=== PATIENT | male | born 1945 | race Caucasian/White ===

== ENCOUNTER 2020-11-03 07:46 | Outpatient (REF) | payer MEDICARE, MEDICAID, SELFPAY ==
[2020-11-03 09:18] LABS: Alanine Aminotransferase 27 U/L (0-40); Albumin Level 4.2 g/dL (3.5-5.0); Alkaline Phosphatase 78 U/L (39-117); Anion Gap 11 (12-20); Aspartate Amino Transferase 20 U/L (5-37); Bilirubin Total 0.3 mg/dL (0.0-1.0); Blood Urea Nitrogen 11 mg/dL (9-16); Calcium 8.6 mg/dL (8.4-10.2); Carbon Dioxide 28 mmol/L (22-29); Chloride 107 mmol/L (96-108); Cholesterol 156 mg/dL; Estimated Glomerular Filt Rate > 60; Glucose Fasting 115 mg/dL (60-99); HDL Cholesterol 46 mg/dL; LDL Cholesterol Calculated 92 mg/dl; Potassium 4.3 mmol/l (3.3-5.1); Sodium 142 mmol/L (135-145); Total Protein 6.8 g/dL (6.5-8.0); Triglycerides 91 mg/dL
== END 2020-11-03 07:47 | disposition home or self-care (01) ==
LOC: HO.LAB 07:46
PROVIDERS: Visit Provider Internal Medicine
DX: I10 Essential (primary) hypertension (principal)
CPT/HCPCS: 80053; 80061

== ENCOUNTER 2020-11-27 07:57 | Outpatient (REF) | payer MEDICARE, MEDICAID, SELFPAY ==
--- NOTE | 2020-11-27 08:04 | US_ITS ---
EXAMINATION: US ABDOMEN LIMITED CLINICAL INFORMATION: Umbilical hernia. COMPARISON: None TECHNIQUE: Doppler color and grayscale evaluation of the periumbilical abdominal wall and right lateral abdominal wall using a linear transducer FINDINGS: There is a defect in the abdominal wall suggestive of an umbilical hernia. Periumbilical abdominal wall defect measures 1.4 x 2.1 cm and contains hypoechoic soft tissue that does not demonstrate peristalsis probably representing fat. Periumbilical hernia sac measures 3 x 2.5 x 1 cm in sagittal transverse and AP dimension. No right lateral abdominal wall hernia is seen. US/US abdomen limited IMPRESSION: Umbilical hernia probably containing fat. Hernia sac measures approximately 3 x 2.5 x 1 cm.
== END 2020-11-27 07:58 | disposition home or self-care (01) ==
LOC: HO.US 07:57
PROVIDERS: Visit Provider Internal Medicine
DX: K42.9 Umbilical hernia without obstruction or gangrene (principal)
CPT/HCPCS: 76705

== ENCOUNTER 2021-03-22 07:44 | Outpatient (REF) | payer MEDICARE, MEDICAID, SELFPAY ==
--- NOTE | ~2021-03-22 | US_ITS ---
EXAMINATION: US ABDOMINAL AORTA CLINICAL INFORMATION: This is a 75-year-old male with history of nicotine dependence. COMPARISON: Comparison is made to a previous study dated 02/02/2020 which did not demonstrate an abdominal aortic aneurysm. TECHNIQUE: Grayscale, color Doppler and spectral Doppler evaluation of the abdominal aorta. FINDINGS: There is minimal scattered atherosclerotic disease without evidence of abdominal aortic aneurysm. The measurements of the aorta in maximum AP and transverse dimensions respectively are as follows: PROXIMAL: 0.2 x 1 point cm. MID: 1.9 x 1 point cm. DISTAL: 1.8 x 1.6 cm. The aorta velocity is 116 cm/s. The measurements of the common iliac arteries in maximum AP dimension are as follows: RIGHT COMMON ILIAC ARTERY: 1.0 x 1 point cm. LEFT COMMON ILIAC ARTERY: 1.2 x 1.1 cm. US/US abdominal aortic aneurysm IMPRESSION: 1. There is no abdominal aortic aneurysm. There is scattered calcified and noncalcified atherosclerotic disease within the aorta.
== END 2021-03-22 07:45 | disposition home or self-care (01) ==
LOC: HO.US 07:44
PROVIDERS: Visit Provider Internal Medicine
DX: Z87.891 Personal history of nicotine dependence (principal)
CPT/HCPCS: 76706

== ENCOUNTER → 2021-05-07 15:20 | Outpatient (BNVA) | payer MEDICARE, MEDICAID, SELFPAY | PROVIDERS: PCP Internal Medicine; Referring Provider Internal Medicine; Visit Provider Surgery | DX: Z01.818 Encounter for other preprocedural examination (principal); K42.9 Umbilical hernia without obstruction or gangrene | CPT/HCPCS: 99202 ==

== ENCOUNTER → 2021-05-22 06:56 | Day surgery (SDC) | payer MEDICARE, MEDICAID, SELFPAY ==
[2021-05-15 12:00] VITALS: BMI 34.0
--- NOTE | 2021-05-21 11:07 | P.CONAN_ITS ---
HPI - Anesthesia Eval Consult details Narrative: 75yo M for Hernia Repair Umbilical with Mesh Pt c/o CP in preop, HR 130's. Sent to ED by anesthesia [facility] Active Problems Active Problems: All Active Problems (Updated 05/15/21 @ 11:57 by Mary Vu) Former smoker (Acute) Periumbilical hernia (Acute) Obesity (Acute) Postherpetic neuralgia (Acute) Essential hypertension (Acute) Past Medical History Medical History (Updated 05/23/21 @ 12:56 by Carisa Jones MD) Essential hypertension Former smoker Obesity Palpitation Periumbilical hernia Postherpetic neuralgia Tachycardia Family History Family History Father Cancer Mother No problems noted. Surgical History Surgical History History of colonoscopy with polypectomy (1999) Social History Social History Alcohol intake: current Alcohol intake frequency: does not drink Alcohol type: beer Patient Tobacco Use Status: Never used Tobacco Tobacco use type: Cigarette Use of substances other than those prescribed or required for medical reasons: No Advance Directives: No Advance Directives Information Provided: No Meds Allergies Allergy/AdvReac Type Severity Reaction Status Date / Time No Known Allergies Allergy Verified 05/07/21 15:26 [No Known Allergies*] Home Medications Medication Instructions Recorded Confirmed Last Taken Type gabapentin 300 mg capsule 300 mg PO BEDTIME 11/07/20 05/15/21 Unknown History Exam Exam Date and Time: May 21, 2021 1107 Height,Weight and Vital Signs: Height 5 ft 6 in Weight 95.6 kg Assessment and Plan Assessment Anesthesia Assessment: Chart Reviewed
[2021-05-22 07:12] VITALS: BP 144/79; PULSE 110; RESP 20; TEMP 36.6; O2SAT 96
--- NOTE | 2021-05-22 07:17 | ECG_ITS ---
Test Reason : PAPITATIONS Blood Pressure : / mmHG Vent. Rate : 132 BPM Atrial Rate : 132 BPM P-R Int : 148 ms QRS Dur : 094 ms QT Int : 304 ms P-R-T Axes : 040 070 003 degrees QTc Int : 450 ms Sinus tachycardia Cannot rule out Inferior infarct , age undetermined Cannot rule out Anterior infarct , age undetermined Abnormal ECG When compared with ECG of 07-APR-2007 23:07, Minimal criteria for Inferior infarct are now Present Referred By: Jesika Chritsian Electronically Signed By:STEPHON BERMUDEZ MD
--- NOTE | 2021-05-22 07:20 | PC.NURSE ---
pt c/o of c/p and sob awaiting ekg dr dove awaiting ekg pwd ls clear speaking in full sentences pulse now 130-144 regular
[2021-05-22 07:26] VITALS: BP 174/83; PULSE 148; RESP 20; TEMP 36.1; O2SAT 96
[2021-05-22] MEDS: Lactated Ringers 1,000 ML 100 ML IVCONT (07:27)
--- NOTE | 2021-05-22 07:28 | PC.NURSE ---
rhythm st 130-148 with pvc
--- NOTE | 2021-05-22 07:29 | PC.NURSE ---
pederson at bedside going over ekg with changes pt will be going to ED DR FERNANDEZ WILL SPEAK TO ED PHYSICIAN
--- NOTE | 2021-05-22 07:35 | PC.NURSE ---
PT DENIES C/P AT THIS TIME CALLED NO SOB PWD REPORT TO ALCIDES LOGAN RN IN ED
== END ==
PROVIDERS: PCP Internal Medicine; Visit Provider Surgery
DX: K42.9 Umbilical hernia without obstruction or gangrene (principal); Z53.8 Procedure and treatment not carried out for other reasons
CPT/HCPCS: 93005

== ENCOUNTER 2021-05-22 07:45 | Emergency (ER) | payer MEDICARE, MEDICAID, SELFPAY ==
--- NOTE | ~2021-05-22 | XR_ITS ---
EXAMINATION: XR CHEST CLINICAL INFORMATION: Fast heart rate COMPARISON: None TECHNIQUE: 2 views of the chest were obtained. FINDINGS: The cardiac and mediastinal contours are normal. The lungs are clear. There is no pleural effusion or pneumothorax. There are degenerative changes of the spine. XR/XR chest 2V IMPRESSION: No evidence for acute disease in the chest.
[2021-05-22 07:48] VITALS: BP 152/69; PULSE 106; RESP 15; TEMP 36.9; O2SAT 96; BMI 33.5
--- NOTE | 2021-05-22 07:51 | PC.NURSE ---
REPORT GIVEN TO NATTY PT PWD DENIES C/P/SOB LATE ENTRY [id number] FAMILY AND PATIENT AWARE OF PLAN OF CARE
[2021-05-22 07:55] VITALS: BP 152/69; PULSE 106; RESP 12; TEMP 36.9; O2SAT 96
--- NOTE | 2021-05-22 07:59 | PC.NURSE ---
Pt alert and oriented, LSCTA. Pt was in short stay for scheduled procedure and started having palpitations that continued over a period of time. Pt states he has been having this issue for months but did not report it to his doctor. He denies chest pain/sob. Pt takes lisinopril at home but did not take it this morning based on instructions to not eat/drink after midnight because of procedure. Pt in no apparent distress, resting quietly. Awaiting ed provider.
--- NOTE | 2021-05-22 08:33 | ECG_ITS ---
Test Reason : PALPITATIONS Blood Pressure : / mmHG Vent. Rate : 105 BPM Atrial Rate : 105 BPM P-R Int : 174 ms QRS Dur : 098 ms QT Int : 360 ms P-R-T Axes : 048 072 006 degrees QTc Int : 475 ms Sinus tachycardia Cannot rule out Inferior infarct (cited on or before 22-MAY-2021) Cannot rule out Anterior infarct (cited on or before 22-MAY-2021) Abnormal ECG When compared with ECG of 22-MAY-2021 07:24, No significant change was found Referred By: Miri Gilbert Electronically Signed By:STEPHON BERMUDEZ MD
--- NOTE | 2021-05-22 08:45 | ED_ITS ---
HPI - Arrhythmia/Palpitations General Chief Complaint: Arrhythmia/Palpitations Stated Complaint: Rapid heartbeat Time Seen by Provider: 05/22/21 08:27 Source: patient and family Mode of arrival: other ( Stretcher) Limitations: no limitations History of Present Illness HPI narrative: 75-year-old male with a past medical history of hypertension, obesity here with complaints of fast heart rate. Patient was in the preoperative area today for an umbilical hernia repair with mesh by Dr. Mariana lancaster. He was noted to have a heart rate of 130-140 on the personnel monitor and was referred to the emergency department for further evaluation. Per preop staff the patient was complaining of some chest discomfort. He tells me that he has no chest discomfort or shortness of breath. He tells me he did have a sensation of palpitations earlier today but this has since improved. He tells me he has been feeling well the last few days. No recent illness. No vomiting, diarrhea, fevers, chills, chest pain, shortness of breath, dizziness. He was feeling anxious he tells me this morning as he was having a surgical procedure. He is now feeling well. He has been fasting since last evening Related Data Home Medications Medication Instructions Recorded Confirmed gabapentin 300 mg capsule 300 mg PO BEDTIME 11/07/20 05/15/21 Previous Rx's Medication Instructions Recorded lisinopril 20 1 tab PO DAILY 90 Days #90 tab 11/07/20 mg-hydrochlorothiazide 25 mg tablet gabapentin 100 mg capsule 100 mg PO TID #270 cap 12/04/20 Allergies Allergy/AdvReac Type Severity Reaction Status Date / Time No Known Allergies Allergy Verified 05/07/21 15:26 [No Known Allergies*] Review of Systems Review of Systems: Yes all other systems are reviewed and are negative Constitutional: Constitutional: Reports no additional constitutional complaints, Denies body ache(s), Denies chills, Denies fever(s), Denies headache(s) and Denies weakness Eyes: Eyes: Reports no additional eye complaints and Denies change in vision ENT: Reports system reviewed and no additional complaints, except as documented, Denies dizziness, Denies headache(s), Denies nasal congestion, Denies nasal discharge and Denies neck pain Cardiovascular: Cardiovascular: Reports no additional cardiovascular complaints, Denies chest pain, Denies leg edema, Reports palpitations and Denies dyspnea Respiratory: Respiratory: Reports no additional respiratory complaints, Denies cough and Denies dyspnea Gastrointestinal: Gastrointestinal: Reports no additional gastrointestinal complaints, Denies abdominal pain, Denies diarrhea, Denies nausea and Denies vomiting Genitourinary: Genitourinary: Denies urinary incontinence Musculoskeletal: Musculoskeletal: Reports no additional musculoskeletal complaints, Denies back pain, Denies arthralgias, Denies joint swelling, Denies neck pain, Denies numbness and Denies tingling Integumentary/Breasts: Skin/Breast: Reports system reviewed and no additional complaints, except as docu and Denies rash Neurologic: Reports system reviewed and no additional complaints, except as documented, Denies Abnormal speech present, Denies dizziness, Denies headache(s), Denies numbness, Denies tingling and Denies weakness Endocrine: Endocrine: Reports palpitations PMFSH Past Medical History Attestation statement: The following information was validated with the patient. Source: old records reviewed and nursing notes reviewed Medical History Essential hypertension Former smoker Obesity Palpitation Periumbilical hernia Postherpetic neuralgia Surgical History History of colonoscopy with polypectomy (1999) Family History Family History Father Cancer Mother No problems noted. Social History Social History Alcohol intake: current Alcohol intake frequency: does not drink Alcohol type: beer Patient Tobacco Use Status: Never used Tobacco Tobacco use type: Cigarette Use of substances other than those prescribed or required for medical reasons: No Advance Directives: No Advance Directives Information Provided: No Physical Exam Vital Signs: Vital Signs: Last Vital Signs Temp 98.4 F 05/22/21 07:55 Pulse 86 05/22/21 11:27 Resp 18 05/22/21 11:27 BP 149/69 H 05/22/21 11:27 Pulse Ox 98 05/22/21 11:27 Body Mass Index 33.5 Const: General: cooperative, healthy appearing, comfortable and no acute distress Orientation/consciousness: patient oriented x3 Limitations: no limitations HENMT: Head: Yes normal to inspection Ears: hearing grossly normal bilaterally General nose exam: Normal external nose present Face and sinus: Yes normal facial exam Mouth: Normal oral and palatal mucosa present Throat: Yes posterior oropharynx normal Eyes: General: appearance normal, both eyes and all related structures Pupils: Equal, round and reactive pupils present Neck: Neck: Yes normal visual inspection Chest: Chest palpation & inspection: normal inspection of the chest Resp: Effort & Inspection: normal respiratory effort Auscultation: clear to auscultation bilaterally Cardio: Rate: tachycardic Rhythm: regular rhythm Peripheral pulses: Peripheral pulses 2+ throughout GI: Inspection: Yes normal to inspection Palpation (GI): Soft to palpation and nontender Auscultation: normal bowel sounds Back/Spine/Pelvis: Thoracic/Lumbar Spine: thoracic and lumbar spine normal to inspection Skin: General skin exam: no rashes or lesions noted Neuro: General: patient oriented x3, no focal motor deficits and normal sensation to monofilament Cranial nerves: Yes Equal, round and reactive pupils present Cognition (Neuro): normal cognition Speech: No Abnormal speech present Gait exam (Neuro): Normal gait present Motor exam (neuro): 5/5 motor strength present throughout Extrem: General: Yes normal to inspection, Yes no pedal edema and Yes no calf tenderness Course Course Course Narrative: 75-year-old male coming from the preoperative area with after being noted to have a heart rate of 130-140 sinus tachycardia on the personnel monitor. It was reported that he was initially complaining of some chest pain b ut he tells me that he did not have any chest pain. He was feeling palpitations and feeling quite anxious in regards to his surgical procedure. As of right now he is feeling well. I reviewed the EKG from preop. It showed sinus tachycardia with a rate of 132. on my assessment the patient has a heart rate of 102 on the personnel monitor. Will plan for repeat EKG, labs, chest x-ray. -0930- Heart rate has now improved to 95. Initial set of labs show an indeterminate troponin. Plan for repeat 3 hour troponin. EKG shows sinus tachycardia. Chest x-ray shows no acute finding -1200 repeat troponin delta. Patient continues to have no complaints. His heart rate is now in the 90s and sinus rhythm. He would like to be discharged home. I did discuss with the patient that he should call his surgeon and asked if he will need additional clearance prior to his surgical procedure. Reviewed worrisome signs and symptoms and when to return to the emergency department. Comfortable discharge home. MDM - Arrhythmia/Palpitations Differential Diagnosis Differential diagnosis: Likely palpitations, anxiety and sinus tachycardia Medical Records Attestation: I reviewed the patient's medical records. Lab Data Attestation: I reviewed the patient's lab results. Result diagrams: 05/22/21 08:42 05/22/21 08:42 Labs: Lab Results 05/22/21 05/22/21 05/22/21 Range/Units 08:42 08:42 08:42 WBC 8.9 (4.8-10.8) X10*3/uL RBC 4.71 (4.60-5.80) X10*6/uL Hgb 15.0 (14.0-18.0) g/dl Hct 42.5 (42-52) % MCV 90.2 (80-98) fL MCH 31.8 (27.0-33.0) pg MCHC 35.3 (31.0-36.0) g/dl RDW 11.7 (11.0-16.0) % Plt Count 272 (160-400) X10*3/uL MPV 8.4 L (9.4-12.4) fL Immature Gran % (Auto) 0.1 (0.0-0.4) % Neut % (Auto) 77.6 H (45-73) % Lymph % (Auto) 14.3 L (20-40) % Whitfield % (Auto) 7.3 (2-11) % Eos % (Auto) 0.4 (0-4) % Baso % (Auto) 0.3 (0-2) % Lymph # (Auto) 1.3 (1.2-4.9) X10*3/uL Whitfield # (Auto) 0.7 (0.1-1.2) X10*3/uL Eos # (Auto) 0.0 (0.0-0.4) X10*3/uL Baso # (Auto) 0.0 (0.0-0.2) X10*3/uL Abs Immat Gran (auto) 0.01 (0.00-0.03) X10*3/uL Absolute Neuts (auto) 6.9 (2.0-8.3) X10*3/uL Absolute Nucleated RBC 0.000 (0.0-0.012) X10*3/uL Nucleated RBC % (auto) 0.0 (0.0-0.2) /100WBC Sodium 139 (135-145) mmol/L Potassium 3.9 (3.3-5.1) mmol/L Chloride 103 (96-108) mmol/L Carbon Dioxide 29 (22-29) mmol/L Anion Gap 11 L (12-20) BUN 16 (9-16) mg/dL Creatinine 1.09 (0.5-1.4) mg/dL Estim Creat Clear Calc 64.8 Estimated GFR > 60 Random Glucose 145 H (60-115) mg/dL Calcium 9.2 D (8.4-10.2) mg/dL Magnesium 1.9 (1.6-2.6) mg/dL Total Bilirubin 0.5 (0.0-1.0) mg/dL Direct Bilirubin 0.3 (0.0-0.5) mg/dL AST 17 (5-37) U/L ALT 21 (0-40) U/L Alkaline Phosphatase 72 (39-117) U/L Troponin I High Sens 4.5 (<3.5-35.0) ng/L Total Protein 6.7 (6.5-8.0) g/dL Albumin 4.2 (3.5-5.0) g/dL TSH 0.87 (0.32-4.0) uIU/mL 05/22/21 Range/Units 11:31 WBC (4.8-10.8) X10*3/uL RBC (4.60-5.80) X10*6/uL Hgb (14.0-18.0) g/dl Hct (42-52) % MCV (80-98) fL MCH (27.0-33.0) pg MCHC (31.0-36.0) g/dl RDW (11.0-16.0) % Plt Count (160-400) X10*3/uL MPV (9.4-12.4) fL Immature Gran % (Auto) (0.0-0.4) % Neut % (Auto) (45-73) % Lymph % (Auto) (20-40) % Whitfield % (Auto) (2-11) % Eos % (Auto) (0-4) % Baso % (Auto) (0-2) % Lymph # (Auto) (1.2-4.9) X10*3/uL Whitfield # (Auto) (0.1-1.2) X10*3/uL Eos # (Auto) (0.0-0.4) X10*3/uL Baso # (Auto) (0.0-0.2) X10*3/uL Abs Immat Gran (auto) (0.00-0.03) X10*3/uL Absolute Neuts (auto) (2.0-8.3) X10*3/uL Absolute Nucleated RBC (0.0-0.012) X10*3/uL Nucleated RBC % (auto) (0.0-0.2) /100WBC Sodium (135-145) mmol/L Potassium (3.3-5.1) mmol/L Chloride (96-108) mmol/L Carbon Dioxide (22-29) mmol/L Anion Gap (12-20) BUN (9-16) mg/dL Creatinine (0.5-1.4) mg/dL Estim Creat Clear Calc Estimated GFR Random Glucose (60-115) mg/dL Calcium (8.4-10.2) mg/dL Magnesium (1.6-2.6) mg/dL Total Bilirubin (0.0-1.0) mg/dL Direct Bilirubin (0.0-0.5) mg/dL AST (5-37) U/L ALT (0-40) U/L Alkaline Phosphatase (39-117) U/L Troponin I High Sens 5.1 (<3.5-35.0) ng/L Total Protein (6.5-8.0) g/dL Albumin (3.5-5.0) g/dL TSH (0.32-4.0) uIU/mL Imaging Data Chest x-ray: Attestation: I personally reviewed and interpreted this imaging study as follows: Radiologist's impression: EXAMINATION: XR CHEST CLINICAL INFORMATION: Fast heart rate COMPARISON: None TECHNIQUE: 2 views of the chest were obtained. FINDINGS: The cardiac and mediastinal contours are normal. The lungs are clear. There is no pleural effusion or pneumothorax. There are degenerative changes of the spine. XR/XR chest 2V IMPRESSION: No evidence for acute disease in the chest. ECG Data Attestation: I personally reviewed and interpreted this ECG as follows: ECG interpretation date: 05/22/21 ECG interpretation time: 08:03 Interpretation: Sinus tachycardia with a rate of 105, prolonged QTC 475, normal DE and QRS q wave in leads 1, 2 and avf Discharge Plan Discharge Clinical Impression: Sinus tachycardia Patient Disposition: Home, Self-Care Instructions: Tachycardia (ED) Additional Instructions: your blood work, chest x-ray and EKG are all unremarkable please call Dr. Claros office tomorrow to discuss if you will need additional clearance prior to surgery Prescriptions: No Action gabapentin 100 mg capsule 100 mg PO TID Qty: 270 RF: 1 gabapentin 300 mg capsule 300 mg PO BEDTIME RF: 0 lisinopril-hydrochlorothiazide 20-25 mg tablet 1 tab PO DAILY 90 Days Qty: 90 RF: 3 Referrals: Carisa Perez MD [Primary Care Provider] - 2 days (as needed) Interventions: ED Discharge Assessment Last Done: 05/22/21 12:42 Discharge Date/Time: 05/22/21 12:43
[2021-05-22 08:47] LABS: MANUAL DIFF FLAG NO
[2021-05-22 08:52] LABS: Basophils Percent Auto 0.3 % (0-2); Eosinophils Percent Auto 0.4 % (0-4); Hematocrit 42.5 % (42-52); Imm Gran Abs Auto 0.01 X10*3/uL (0.00-0.03); Imm Gran Pct Auto 0.1 % (0.0-0.4); Lymphocytes Absolute Auto 1.3 X10*3/uL (1.2-4.9); Lymphocytes Percent Auto 14.3 % (20-40); Mean Corpuscular HGB Conc 35.3 g/dl (31.0-36.0); Mean Corpuscular Hemoglobin 31.8 pg (27.0-33.0); Mean Corpuscular Volume 90.2 fL (80-98); Mean Platelet Volume 8.4 fL (9.4-12.4); Monocytes Absolute Auto 0.7 X10*3/uL (0.1-1.2); Monocytes Percent Auto 7.3 % (2-11); Neutrophils Absolute Auto 6.9 X10*3/uL (2.0-8.3); Neutrophils Percent Auto 77.6 % (45-73); Platelet Count 272 X10*3/uL (160-400); Red Blood Count 4.71 X10*6/uL (4.60-5.80); Red Cell Distribution Width 11.7 % (11.0-16.0); White Blood Count 8.9 X10*3/uL (4.8-10.8)
[2021-05-22] MEDS: 0.9 % Sodium Chloride 1,000 ML 999 ML IV (08:53)
[2021-05-22 08:55] VITALS: BP 152/79; PULSE 99; RESP 16; O2SAT 96
[2021-05-22 09:17] LABS: Alanine Aminotransferase 21 U/L (0-40); Albumin Level 4.2 g/dL (3.5-5.0); Alkaline Phosphatase 72 U/L (39-117); Anion Gap 11 (12-20); Aspartate Amino Transferase 17 U/L (5-37); Bilirubin Direct 0.3 mg/dL (0.0-0.5); Bilirubin Total 0.5 mg/dL (0.0-1.0); Blood Urea Nitrogen 16 mg/dL (9-16); Calcium 9.2 mg/dL (8.4-10.2); Carbon Dioxide 29 mmol/L (22-29); Chloride 103 mmol/L (96-108); Creatinine Clr Calc Pharmacy 64.8; Estimated Glomerular Filt Rate > 60; Glucose Random 145 mg/dL (60-115); Magnesium 1.9 mg/dL (1.6-2.6); Potassium 3.9 mmol/L (3.3-5.1); Sodium 139 mmol/L (135-145); Total Protein 6.7 g/dL (6.5-8.0)
[2021-05-22 09:19] LABS: Troponin-I High Sensitivity 4.5 ng/L (<3.5-35.0)
[2021-05-22 09:37] LABS: Thyroid Stimulating Hormone 0.87 uIU/mL (0.32-4.0)
[2021-05-22 11:27] VITALS: BP 149/69; PULSE 86; RESP 18; O2SAT 98
[2021-05-22 12:06] LABS: Troponin-I High Sensitivity 5.1 ng/L (<3.5-35.0)
== END 2021-05-22 12:43 | disposition home or self-care (01) ==
PROVIDERS: Nurse Practitioner Family; Emergency Provider Emergency Medicine Emergency Medical Services; PCP Internal Medicine
DX: R00.0 Tachycardia, unspecified (principal); I10 Essential (primary) hypertension; E66.9 Obesity, unspecified; Z68.33 Body mass index [BMI] 33.0-33.9, adult; Z79.899 Other long term (current) drug therapy
CPT/HCPCS: 36415; 71046; 80048; 80076; 83735; 84443; 84484; 85025; 93005; 96360; 99285

== ENCOUNTER → 2021-08-01 13:10 | Outpatient (BNVA) | payer MEDICARE, MEDICAID, SELFPAY | PROVIDERS: PCP Internal Medicine; Visit Provider Nurse Practitioner Family | DX: M54.16 Radiculopathy, lumbar region (principal); M47.816 Spondylosis without myelopathy or radiculopathy, lumbar region | CPT/HCPCS: 99202 ==

== ENCOUNTER 2021-08-28 11:19 | Outpatient (REF) | payer MEDICARE, MEDICAID, SELFPAY ==
--- NOTE | ~2021-08-28 | XR_ITS ---
EXAMINATION: XR LUMBOSACRAL SPINE CLINICAL INFORMATION: Spondylosis without myelopathy COMPARISON: None TECHNIQUE: Three views of the lumbosacral spine. FINDINGS: Bone alignment is normal. No fracture or dislocation is seen. There is multilevel degenerative spondylosis. There is lower lumbar spine facet arthritis. Disc spaces are normal. 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
== END 2021-08-28 11:20 | disposition home or self-care (01) ==
LOC: HO.XRAY 11:19
PROVIDERS: PCP Internal Medicine; Visit Provider Nurse Practitioner Family
DX: M47.816 Spondylosis without myelopathy or radiculopathy, lumbar region (principal)
CPT/HCPCS: 72100

== ENCOUNTER 2021-10-03 09:00 | Outpatient (RCR) | payer MEDICARE, MEDICAID, SELFPAY ==
--- NOTE | 2021-08-31 07:54 | MHC.PT.EP ---
[facility] [place] Office [place] Office [place] Office [address] Juliann Miller [address] [phone] F: [phone] F: [phone] F: [phone] F: [phone] Physical Therapy Plan of Care Date of Evaluation: Date of Surgery: Diagnosis: radiculopathy, LUMBAR AREA Assessment: 75 YO MALE REF TO PT W 1 YR H/O PROGRESSIVE MID- LBP AND INTERMITTENT LEFT LAT THIGH SXS- HE IS RETIRED- Pt HAS DECR TRUNK AROM, DECR MOBILITY IN ALEXIA HIPS, IMPACTING HIS FUNCTIONAL SQUAT MECH. HE HAS DECR POSTURAL AWARENESS W HYPOLORDOTIC LUMBAR SPINE- FUNCTIONALLY, Pt HAS A SEDENTARY LIFESTYLE- HIS PAIN INCR W MORE PHYSICAL ADLs- HE HAD XRAYS, BUT RESULTS ARE PENDING. Pt IS A GOOD PT CANDIDATE TO ADDRESS PAIN MGMT, DEV A HEP, AND INCR FUNCT MOB PRETTY. Frequency and Duration: The patient will be seen 2x WK x 4 WKS Short Term Goals: Pt DEMON APPROP SELF- POSTURAL CORRECTION AND BODY MECH W 2:2 SIMUL ADLs IN 2 WKS Pt INDEP W EXER TO ADDRESS HIP FLEXIB AND INITIATE GLUTE WORK IN 2 WKS Pt'S LBP DECR TO 2-3/10 IN 2 WKS Speech Therapist Goals: Pt INDEP W HEP AND SELF-SX MGMT TECHN IN 4 WKS Pt RESUME REG ADLs/ EXER EVIDENT W IMPROVED OSWESTRY SCORE BY 5-10 POINTS (AT EVAL 13/50) IN 4 WKS Treatment Plan: Modalities to reduce pain, spasms and effusion. Manual therapy to restore motion and function. Therapeutic exercise to improve strength and flexibility. Neuromuscular re-education for posture and balance. Therapeutic activities to return to functional activities of daily living. Electronically signed by: Milana Disla,PT Please sign and return to therapist. Thank you for your referral.
--- NOTE | 2021-11-20 14:32 | MHC.PT.DC ---
[facility] [place] Office [place] Office [place] Office [address] [phone] F: [phone] F: [phone] F: [phone] F: [phone] Physical Therapy Discharge Report Diagnosis: radiculopathy, LUMBAR AREA Date of Surgery: Date of Evaluation: 08/30/21 Date of Discharge: 11/20/21 Treatments to Date: 8 Cancellations to Date: 0 No Shows to Date: 1 Discharge Status: Achieved Goals Improved Function Independent with HEP Patient Elected to Stop Discharge Summary: Pt INDEP AND COMPLIANT W HEP- OVERALL PROGRESSED WELL AND WAS ABLE TO RESUME REG ADLs W/O LIMITATIONS FROM LBP- HE DID NOT ATTEND LAST SCHED APPT, AND, THEREFORE, A RE-ASSESSMENT WAS NOT PERFORMED. Electronically signed by: Milana Disla, PT Please sign and return to therapist. Thank you for your referral.
== END 2021-11-20 14:33 | disposition home or self-care (01) ==
LOC: HO.PT 09:00
PROVIDERS: Visit Provider Nurse Practitioner Family
DX: M54.16 Radiculopathy, lumbar region (principal)
CPT/HCPCS: 97110; 97161; 97530

== ENCOUNTER 2022-02-22 09:43 | Outpatient (REF) | payer MEDICARE, MEDICAID, SELFPAY ==
[2022-02-22 10:37] LABS: Alanine Aminotransferase 21 U/L (0-40); Albumin Level 4.2 g/dL (3.5-5.0); Alkaline Phosphatase 81 U/L (39-117); Anion Gap 8 (12-20); Aspartate Amino Transferase 16 U/L (5-37); Bilirubin Total 0.5 mg/dL (0.0-1.0); Blood Urea Nitrogen 11 mg/dL (9-16); Calcium 9.1 mg/dL (8.4-10.2); Carbon Dioxide 29 mmol/L (22-29); Chloride 108 mmol/L (96-108); Cholesterol 146 mg/dL; Estimated Glomerular Filt Rate > 60; Glucose Fasting 107 mg/dL (60-99); HDL Cholesterol 42 mg/dL; LDL Cholesterol Calculated 87 mg/dl; Potassium 4.4 mmol/L (3.3-5.1); Sodium 141 mmol/L (135-145); Total Protein 6.9 g/dL (6.5-8.0); Triglycerides 88 mg/dL
[2022-02-22 10:55] LABS: Prostate Specific Antigen 1.99 ng/mL (<0.05-4.0)
[2022-02-27 13:16] LABS: Vitamin D 25-OH, D2 <4 ng/mL; Vitamin D 25-OH, D3 7 ng/mL; Vitamin D 25-OH, Total 7 ng/mL (30-100)
== END 2022-02-22 09:44 | disposition home or self-care (01) ==
LOC: HO.LAB 09:43
PROVIDERS: Nurse Practitioner Family; PCP Internal Medicine; Visit Provider Internal Medicine
DX: I10 Essential (primary) hypertension (principal); E78.5 Hyperlipidemia, unspecified; E55.9 Vitamin D deficiency, unspecified; Z12.5 Encounter for screening for malignant neoplasm of prostate
CPT/HCPCS: 36415; 80053; 80061; 82306; 84153

== ENCOUNTER 2023-08-08 11:44 | Outpatient (AMB) | payer OTHER, SELFPAY ==
[2023-08-08 11:46] VITALS: BP 160/82; PULSE 73; O2SAT 99; BMI 33.7
--- NOTE | 2023-08-08 11:46 | AM.OFFVISMDC ---
Intake Vital Signs 08/08/23 11:46 08/08/23 12:19 Height 5 ft 6 in Weight 209 lb BMI 33.7 BP 160/82 H 148/82 H Blood Pressure Location Lt brachial Lt brachial Position Sitting Sitting Pulse 73 Pulse Source Pulse Oximeter Temp Source Skin Pulse Oximetry (%) 99 Oxygen Delivery Method Room Air Intake Visit Reasons: SAWV Intake Note: Patient is here for an Annual Wellness Visit. Mfg Assoc Required: No Allergies lisinopril Adverse Reaction (Intermediate, Verified 08/08/23 12:08) Cough Medication List - Last Reconciled 08/08/23 by CRISTOPHER Gomez amlodipine 5 mg PO DAILY 90 days blood pressure monitor As directed cholecalciferol (vitamin D3) (Vitamin D3) 50 mcg PO DAILY 90 days gabapentin 300 mg PO BEDTIME gabapentin 100 mg PO TID losartan 25 mg PO DAILY 90 days HPI SAWV HPI Details Patient is a 77-year-old male who presents today for subsequent wellness visit. Patient of Dr. Tompkins. Today we discussed patient's need for prostate cancer screening, diabetes screening and pneumonia vaccine. Patient has declined pneumonia vaccine. Cologuard negative 08/2022. Patient reports history of tetanus vaccine within 10 years. [place] of care was reviewed with the patient and he was provided with a screening schedule. End of life planning was discussed with the patient and he was provided with healthcare proxy and MOLST forms. Patient is a Arabic-speaking and his was helping with interpretation. [facility], [facility] Medical History Class 1 obesity with body mass index (BMI) of 32.0 to 32.9 in adult Impaired glucose tolerance Class 1 obesity with body mass index (BMI) of 33.0 to 33.9 in adult Screening for prostate cancer Screening for colon cancer Left sided sciatica Tachycardia Palpitation Former smoker Periumbilical hernia Obesity Postherpetic neuralgia Essential hypertension Surgical History History of colonoscopy with polypectomy (1999) Family History Father Cancer Mother No problems noted. Social History Housing: Apartment Alcohol intake: former Patient Tobacco Use Status: Never used Tobacco e-Cigarette/Vaping Use: Never Used Second Hand Smoke Exposure: No service: No Current occupational status: disabled Cognitive needs: No Hearing needs: No Vision needs: Yes Questionnaire Medicare Wellness Checkup [age] What gender do you identify with?: male During the past 4 weeks, how much have you been bothered by emotional problems such as feeling anxious, depressed, irritable, sad or downhearted, and blue?: not at all During the past 4 weeks, has your physical & emotional health limited your social activities with family, friends, neighbors, or groups?: not at all During the past 4 weeks, how much bodily pain have you generally had?: no pain During the past 4 weeks, was someone available to help you if you needed & wanted help?: no, not at all During the past 4 weeks, what was the hardest physical activity you could do for at least 2 minutes?: heavy Can you get to places out of walking distance without help? (For eg., can you travel alone on buses, taxis or drive your car?): Yes Can you go shopping for groceries or clothes without someone's help?: Yes Can you prepare your own meals?: Yes Can you do your housework without help?: Yes Because of any health problems, do you need the help of another person with your personal care needs such as eating, bathing, dressing or getting around the house?: No Can you handle your own money without help?: Yes During the past 4 weeks, how would you rate your health in general?: excellent During the past 4 weeks how have things been going for you?: very well; could hardly better Are you having difficulties driving your car?: no Do you always fasten your seat belt when you are in a car?: yes, usually During past 4 weeks, have you been bothered by the following: never: Falling or dizzy when standing up, Sexual problems?, Trouble eating well?, Teeth or denture problems?, Problems using the telephone? and Tiredness or fatigue? Have you fallen 2 or more times in the past year?: No Are you afraid of falling?: No Are you a smoker?: no During the past 4 weeks, how many drinks of wine, beer, or other alcoholic beverages did you have?: no alcohol at all Do you exercise for about 20 minutes 3 or more times a week?: yes, most of the time Have you been given information to help with the following?: yes: Hazards in your house that might hurt you? and yes: Keeping track of your medications? How often do you have trouble taking medicines the way you have been told to take them?: I always take medicine as prescribed How confident are you that you can control & manage most of your health problems?: very confident What is your race?: or origin or descent Mini Mental State Exam (MMSE) Orientation What is the (year) (season) (date) (day) (month)?: year, season, date, day and month Score Score: 5 Activity of Daily Living Bathing - sponge bath, tub bath or shower: receives no assistance (gets in/out by self, if usual bathing means Dressing - getting clothes from closets & drawers, including inner/outer garments & fasteners.: gets clothes & gets completely dressed without help Toileting - going to the 'toilet room' for urine/bowel elimination & cleaning self/arranging clothes: goes to toilet room, cleans self, arranges clothes without help Transfer: moves in & out of bed and chair without help (may use support object) Continence: controls urination/bowel movements completely by self Feeding: feeds self without help Total Score: 0 Information obtained from: patient Using telephone: independent Traveling: independent Shopping: independent Preparing meals: independent Housework: independent Taking medicine: independent Managing money: independent PHQ-9 Over the last 2 weeks, how often have you been bothered by any of the following problems? 1. Little interest or pleasure in doing things: not at all 2. Feeling down, depressed, or hopeless: not at all 3. Trouble falling or staying asleep, or sleeping too much: not at all 4. Feeling tired or having little energy: not at all 5. Poor appetite or overeating: not at all 6. Feeling bad about yourself - or that you are a failure or have let yourself or your family down: not at all 7. Trouble concentrating on things, such as reading the newspaper or watching television: not at all 8. Moving or speaking so slowly that other people could have noticed. Or the opposite - being so fidgety or restless that you have been moving around a lot more than usual: not at all 9. Thoughts that you would be better off or of hurting yourself in some way: not at all Total score: 0 Depression Screening Interpretation: Negative [id number] - PHQ-9 Billing: Yes Source: Developed by Drs. Dirk Grewal, Lilli Kumar, Milton Riojas and colleagues, with an educational hannah from [employer]. Physical Exam Vital Signs: Last Vital Signs Pulse 73 08/08/23 11:46 BP 160/82 H 08/08/23 11:46 Pulse Ox 99 08/08/23 11:46 Oxygen Delivery Method Room Air 08/08/23 11:46 BMI result Body Mass Index 33.7 Const General: cooperative and no acute distress Orientation/consciousness: patient oriented x3 HEENT Other: Whisper test: pass Neuro Other: Balance: Normal Get up and walk: able to Romberg: negative Tandem gait: able to General: patient oriented x3 Assessment & Plan Assessment & Plan (1) Adult general medical exam: Code(s): Z00.00 - Encounter for general adult medical examination without abnormal findings (2) Obesity: Code(s): E66.9 - Obesity, unspecified Qualifiers: Obesity type: due to excess calories Obesity classification: adult class 1 (BMI 30 - 34.9) Serious obesity comorbidity presence: with serious comorbidity Body mass index: BMI 33.0-33.9 Qualified Code(s): E66.09 - Other obesity due to excess calories; Z68.33 - Body mass index [BMI] 33.0-33.9, adult Plan: Reinforced healthy food choices and exercise as tolerated. (3) Postherpetic neuralgia: Comment: taking gabapentin Code(s): B02.29 - Other postherpetic nervous system involvement Plan: Patient is on gabapentin (4) Essential hypertension: Code(s): I10 - Essential (primary) hypertension Plan: Continue current treatment. Reinforced low-sodium diet and exercise as tolerated. Patient provided with blood pressure monitor prescription (5) Screening for diabetes mellitus: Code(s): Z13.1 - Encounter for screening for diabetes mellitus (6) Screening for prostate cancer: Code(s): Z12.5 - Encounter for screening for malignant neoplasm of prostate Orders: Orders Basic Metabolic Panel Fasting Today Z13.1 - Encounter for screening for diabetes mellitus Prostate Specific Antigen Today Z12.5 - Encounter for screening for malignant neoplasm of prostate Medications: New blood pressure kit-extra large As directed 1 ea 0RF I10 - Essential (primary) hypertension Quality Reporting (2019) Adult ([facility] 138/2/22/69) Smoking risk assessment performed?: Yes Patient Tobacco Use Status: Never used Tobacco Depression/Bipolar (159/160/161/177) PHQ-9: Total score: 0 Coding Level of Care Code Medicare Subsequent (G0439) Diagnoses Adult general medical exam Z00.00 Class 1 obesity due to excess calories with serious comorbidity and body mass index (BMI) of 33.0 to 33.9 in adult E66.09; Z68.33 Obesity type: due to excess calories Obesity classification: adult class 1 (BMI 30 - 34.9) Serious obesity comorbidity presence: with serious comorbidity Body mass index: BMI 33.0-33.9 Postherpetic neuralgia B02.29 Essential hypertension I10 Screening for diabetes mellitus Z13.1 Screening for prostate cancer Z12.5 CPT Codes Advance Care Planning - Time spent: 1-15 minutes, not on file ([id number]) Advance Care Planning Date of discussion: 08/08/23 Who was present: pt, , nnp Forms completed: None Time spent: 1-15 minutes, not on file Actual minutes spent: 3 Did not discuss due to Cultural/Spiritual beliefs: No
[2023-08-08 12:19] VITALS: BP 148/82
== END 2023-08-08 12:27 | disposition home or self-care (01) ==
PROVIDERS: PCP Internal Medicine; Visit Provider Nurse Practitioner Family
DX: Z00.00 Encounter for general adult medical examination without abnormal findings (principal); I10 Essential (primary) hypertension; E66.09 Other obesity due to excess calories; Z68.33 Body mass index [BMI] 33.0-33.9, adult; B02.29 Other postherpetic nervous system involvement; Z13.1 Encounter for screening for diabetes mellitus; Z12.5 Encounter for screening for malignant neoplasm of prostate
CPT/HCPCS: 1124F; G0439

== ENCOUNTER 2023-09-02 09:03 | Outpatient (REF) | payer OTHER, SELFPAY ==
[2023-09-02 10:53] LABS: Anion Gap 12 (12-20); Blood Urea Nitrogen 11 mg/dL (9-16); Calcium 9.5 mg/dL (8.4-10.2); Carbon Dioxide 28 mmol/L (22-29); Chloride 106 mmol/L (96-108); Estimated Glomerular Filt Rate > 60; Glucose Fasting 116 mg/dL (60-99); Potassium 4.7 mmol/L (3.3-5.1); Sodium 141 mmol/L (135-145)
== END 2023-09-02 09:04 | disposition home or self-care (01) ==
LOC: HO.LAB 09:03
PROVIDERS: Visit Provider Nurse Practitioner Family
DX: Z12.5 Encounter for screening for malignant neoplasm of prostate (principal); Z13.1 Encounter for screening for diabetes mellitus
CPT/HCPCS: 36415; 80048; 84153

== ENCOUNTER 2023-09-03 15:32 | Outpatient (AMB) | payer OTHER, SELFPAY ==
--- NOTE | 2023-09-03 15:44 | MHC.PC.OV ---
Vital Signs 09/03/23 15:45 Height 5 ft 6 in Weight 203 lb BMI 32.8 BP 150/80 H Blood Pressure Location Lt brachial Position Sitting Pulse 90 Pulse Source Pulse Oximeter Pulse Oximetry (%) 96 Oxygen Delivery Method Room Air Intake Visit Reasons: BP Intake Note: Patient here for a follow up BP [employer]ach[employer] Required: No Accompanied by: Self / Same As Patient Allergies lisinopril Adverse Reaction (Intermediate, Verified 09/03/23 15:55) Cough Medication List - Last Reconciled 09/03/23 by Carisa Jones MD amlodipine 5 mg PO DAILY 90 days blood pressure kit-extra large As directed blood pressure monitor As directed cholecalciferol (vitamin D3) (Vitamin D3) 50 mcg PO DAILY 90 days gabapentin 300 mg PO BEDTIME gabapentin 100 mg PO TID losartan 25 mg PO DAILY 90 days Tobacco use date assessed: 12/03/22 Fall risk assessment: No Falls in past year Last assessed Fall Risk: 09/03/23 Dental Screening Dental Screen Date: 09/03/23 Did you have a dental visit in the last 12 months?: No Did you have a dental problem in the last 6 months where you did not have access to dental care?: No Was dental information given to patient?: Patient has dentist HPI HPI Comments History of Present Illness Details This is a 77-year-old male with hypertension, impaired glucose tolerance, postherpetic neuralgia and low vitamin-D that comes today for follow-up on blood pressure. Blood pressure elevated but at home yesterday was 130/80. I will increase losartan from 25 mg to 50 mg. Blood pressure will be recheck in 3 weeks by nurse navigator. Fasting blood glucose elevated but he denies any polyuria or polydipsia. Vitamin-D levels and lipid panel will also be repeated in 4 months as well as fasting blood glucose. On gabapentin for his neuralgia that has been stable. [facility] Medical History Class 1 obesity with body mass index (BMI) of 32.0 to 32.9 in adult Impaired glucose tolerance Class 1 obesity with body mass index (BMI) of 33.0 to 33.9 in adult Screening for prostate cancer Screening for colon cancer Left sided sciatica Tachycardia Palpitation Former smoker Periumbilical hernia Obesity Postherpetic neuralgia Essential hypertension Surgical History History of colonoscopy with polypectomy (1999) Family History Father Cancer Mother No problems noted. Social History Housing: Apartment Alcohol intake: former Patient Tobacco Use Status: Never used Tobacco e-Cigarette/Vaping Use: Never Used Second Hand Smoke Exposure: No service: No Current occupational status: disabled Cognitive needs: No Hearing needs: No Vision needs: Yes Questionnaire Thrive Questionnaire Date Thrive assessed: 12/03/22 ROSS-7 AMB Questionnaire ROSS-7 Date ROSS - 7 assessed: 12/03/22 Source: Developed by Drs. Dirk Grewal, Lilli Kumar, Milton Riojas and colleagues, with an educational hannah from [employer]. Review of Systems Const All systems reviewed & are unremarkable except as noted in HPI and below Eyes Reports no additional complaints, Denies change in vision and Denies other visual disturbances Card Denies chest pain at rest, Denies chest pain with activity, Denies edema, Denies irregular heart rhythm, Denies claudication, Denies dyspnea, Denies dyspnea on exertion, Denies orthopnea, Denies paroxysmal nocturnal dyspnea and Denies slow heart rate Resp Denies cough, Denies dyspnea and Denies dyspnea on exertion GI Denies abdominal pain, Denies change in bowel habits, Denies excessive flatus, Denies nausea and Denies vomiting Denies urinary hesitancy, Denies urinary incontinence and Denies urinary urgency Musc Denies abnormal gait, Denies atrophy, Denies deformity and Denies limited range of motion Skin/Breast Denies bleeding lesions, Denies changing lesions and Denies rash Neuro Denies abnormal gait and Denies lack of coordination Physical exam (Primary Care) Vital Signs: Last Vital Signs Pulse 90 09/03/23 15:45 BP 150/80 H 09/03/23 15:45 Pulse Ox 96 09/03/23 15:45 Oxygen Delivery Method Room Air 09/03/23 15:45 BMI result Body Mass Index 32.8 Tobacco/Smoking Status: Tobacco use Status Tobacco use date assessed 12/03/22 09/03/23 15:48 Patient Tobacco Use Status Never used Tobacco 09/03/23 15:48 Tobacco use type 02/26/22 10:17 e-Cigarette/Vaping Use Never Used 09/03/23 15:48 Thrive Assessment: Date of Thrive Assessment Date Thrive assessed 12/03/22 09/03/23 15:48 Eyes General: appearance normal, both eyes and all related structures Eyelids: Yes eyelids normal Conjunctivae: conjunctivae normal Neck Neck: Yes normal visual inspection and Yes supple Resp Effort & Inspection: normal respiratory effort Auscultation: clear to auscultation bilaterally Cardio Jugular venous distension: no JVD Rate: regular rate Rhythm: regular rhythm Heart sounds: S1 normal heart sound present and S2 normal heart sound present Extrem General: Yes full ROM Office Procedures Flu Questionnaire Does the patient have a severe egg allergy?: No Immunizations flu vacc [id number] 6mos up(PF) 60 mcg(15 mcgx4)/0.5 mL IM syringe Performing Provider: Carisa Jones MD [facility] Documented (not given) by: HEMANT Chavez on 09/03/23 15:49 Reason Not Given: Patient Refused Assessment and Plan Assessment & Plan (1) Essential hypertension: Code(s): I10 - Essential (primary) hypertension Plan: Continue amlodipine. Increase losartan from 25 mg to 50 mg. Blood pressure will be recheck in 3 weeks by nurse navigator. Blood pressure goal is equal or less than 130/80. (2) Postherpetic neuralgia: Comment: taking gabapentin Code(s): B02.29 - Other postherpetic nervous system involvement Plan: Continue gabapentin. (3) Impaired glucose tolerance: Code(s): R73.02 - Impaired glucose tolerance (oral) Plan: Repeat fasting blood glucose in 4 months. (4) Hypovitaminosis D: Code(s): E55.9 - Vitamin D deficiency, unspecified Plan: Continue vitamin-D supplements. Repeat vitamin-D levels. Orders: Orders Influenza [id number] Immunization Today Z23 - Encounter for immunization Vitamin D 25-OH Total 4 Months E55.9 - Vitamin D deficiency, unspecified Comprehensive Rousseau. Panel Fast 4 Months R73.02 - Impaired glucose tolerance (oral) Lipid Panel 4 Months E78.5 - Hyperlipidemia, unspecified Medications: New losartan 50 mg PO DAILY 90 days 90 tabs 1RF Refilled gabapentin 100 mg PO TID 270 caps 1RF Discontinued losartan Discontinued Reason: Patient Completed Course 25 mg PO DAILY 90 days 90 tabs 1RF Coding Level of Care Code Est Pt Level 4 (44403) Diagnoses Essential hypertension I10 Postherpetic neuralgia B02.29 Impaired glucose tolerance R73.02 Hypovitaminosis D E55.9 Time Spent (min) 23
[2023-09-03 15:45] VITALS: BP 150/80; PULSE 90; O2SAT 96; BMI 32.8
== END 2023-09-03 16:05 | disposition home or self-care (01) ==
PROVIDERS: PCP Internal Medicine; Visit Provider Internal Medicine
DX: I10 Essential (primary) hypertension (principal); B02.29 Other postherpetic nervous system involvement; R73.02 Impaired glucose tolerance (oral); E55.9 Vitamin D deficiency, unspecified
CPT/HCPCS: 99214

== ENCOUNTER 2023-09-27 09:51 | Emergency (ER) | payer OTHER, SELFPAY ==
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
[2023-09-27 09:57] VITALS: BP 148/66; PULSE 95; RESP 18; TEMP 36.4; O2SAT 97; BMI 32.6
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
[2023-09-27] MEDS: Lidocaine 4 % Patch ADH..PATCH 2 PATCH TRANSDERMA (10:43)
[2023-09-27] MEDS: Cyclobenzaprine HCl 10 MG TABLET PO (10:44)
[2023-09-27 11:59] VITALS: BP 135/70; PULSE 70; RESP 18; O2SAT 100
== END 2023-09-27 12:01 | disposition home or self-care (01) ==
PROVIDERS: Emergency Provider Emergency Medicine; PCP Internal Medicine
DX: Z04.1 Encounter for examination and observation following transport accident (principal); M79.18 Myalgia, other site
CPT/HCPCS: 70450; 70486; 72125; 73030; 96372; 99284; J1885

== ENCOUNTER 2024-01-08 15:26 | Outpatient (AMB) | payer OTHER, SELFPAY ==
--- NOTE | 2024-01-08 15:29 | A.OFFPC_ITS ---
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 Accompanied by: Self / Same As Patient Allergies lisinopril Adverse Reaction (Intermediate, Verified 01/08/24 15:56) Cough Medication List - Last Reconciled 01/08/24 by Carisa Jones MD amlodipine 5 mg PO DAILY 90 days blood pressure kit-extra large As directed blood pressure monitor As directed cholecalciferol (vitamin D3) (Vitamin D3) 50 mcg PO DAILY 90 days cyclobenzaprine 10 mg PO BEDTIME PRN gabapentin 300 mg PO BEDTIME gabapentin 100 mg PO TID lidocaine 5% (Lidoderm) 1 patch topical DAILY losartan 50 mg PO DAILY 90 days naproxen 500 mg PO BID PRN Tobacco use date assessed: 01/08/24 Fall risk assessment: No Falls in past year Last assessed Fall Risk: 01/08/24 Dental Screening Dental Screen Date: 01/08/24 Did you have a dental visit in the last 12 months?: No Did you have a dental problem in the last 6 months where you did not have access to dental care?: No Was dental information given to patient?: Patient has dentist HPI HPI Comments History of Present Illness Details This is a 78-year-old male with hypertension, post herpetic neuralgia, lumbar radiculopathy and low vitamin-D that comes today for follow-up on his conditions. Blood pressure borderline normal to elevated and will be recheck in 3 weeks by nurse navigator. Neuralgia stable with gabapentin. Lumbar radiculopathy well controlled with naproxen as needed. On vitamin-D supplements for his low vitamin-D. [facility] Medical History Class 1 obesity with body mass index (BMI) of 32.0 to 32.9 in adult Impaired glucose tolerance Class 1 obesity with body mass index (BMI) of 33.0 to 33.9 in adult Screening for prostate cancer Screening for colon cancer Left sided sciatica Tachycardia Palpitation Former smoker Periumbilical hernia Obesity Postherpetic neuralgia Essential hypertension Surgical History History of colonoscopy with polypectomy (1999) Family History Father Cancer Mother No problems noted. Social History Housing: Apartment Alcohol intake: former Patient Tobacco Use Status: Never used Tobacco e-Cigarette/Vaping Use: Never Used Second Hand Smoke Exposure: No service: No Current occupational status: disabled Cognitive needs: No Hearing needs: No Vision needs: Yes Questionnaire PHQ-9 Over the last 2 weeks, how often have you been bothered by any of the following problems? 1. Little interest or pleasure in doing things: not at all 2. Feeling down, depressed, or hopeless: not at all 3. Trouble falling or staying asleep, or sleeping too much: not at all 4. Feeling tired or having little energy: not at all 5. Poor appetite or overeating: not at all 6. Feeling bad about yourself - or that you are a failure or have let yourself or your family down: not at all 7. Trouble concentrating on things, such as reading the newspaper or watching television: not at all 8. Moving or speaking so slowly that other people could have noticed. Or the opposite - being so fidgety or restless that you have been moving around a lot more than usual: not at all 9. Thoughts that you would be better off or of hurting yourself in some way: not at all Total score: 0 Depression Screening Interpretation: Negative Depression Screening Done: Yes 17764 - PHQ-9 Billing: Yes Source: Developed by Drs. Dirk Grewal, Lilli Kumar, Milton Riojas and colleagues, with an educational hannah from [employer]. Thrive Questionnaire Date Thrive assessed: 01/08/24 I am a: Patient What is your living situation today?: I have a steady place to live Within the past 12 months, did the food you bought not last and you didn't have the money to get more?: Never true Within the past 12 months, did you worry whether your food would run out before you got money to buy more?: Never true Do you have trouble paying for medicines?: No Do you have trouble getting transportation to medical appointments?: No Do you have trouble paying your heating and electricity bill?: No Do you have trouble taking care of your child, family member or friend?: No Do you have trouble with day-to-day activities such as bathing, preparing meals, shopping, managing finances, etc.?: No Are you currently unemployed and looking for a job?: No Are you interested in more education?: No Please select the resources that you would like help with: None Currently or been in a relationship where the following occur: no concerns reported THRIVE Score: 0 AUDIT C Alcohol Use Questionnaire (AUDIT-C) 1. How often do you have a drink containing alcohol?: Never Total Score: 0 ROSS-7 AMB Questionnaire ROSS-7 Date ROSS - 7 assessed: 01/08/24 Feeling nervous, anxious, or on edge: 0 = Not at all Not being able to stop or control worryin = Not at all Worrying too much about different things: 0 = Not at all Trouble relaxin = Not at all Being so restless that it is hard to sit still: 0 = Not at all Becoming easily annoyed or irritable: 0 = Not at all Feeling afraid as if something awful might happen: 0 = Not at all Total ROSS-7 score (0-4 normal; 5-9 mild; 10-14 moderate; 15-21 severe): 0 Source: Developed by Drs. Dirk Grewal, Lilli Kumar, Milton Riojas and colleagues, with an educational hannah from [employer]. ROSS-7 Assessment Billing ROSS-7 Assessment Tool: ROSS-7 Assessment 13162 Review of Systems Const All systems reviewed & are unremarkable except as noted in HPI and below Eyes Reports no additional complaints, Denies change in vision and Denies other visual disturbances Card Denies chest pain at rest, Denies chest pain with activity, Denies edema, Denies irregular heart rhythm, Denies claudication, Denies dyspnea, Denies dyspnea on exertion, Denies orthopnea, Denies paroxysmal nocturnal dyspnea and Denies slow heart rate Resp Denies cough, Denies dyspnea and Denies dyspnea on exertion GI Denies abdominal pain, Denies change in bowel habits, Denies excessive flatus, Denies nausea and Denies vomiting Denies urinary hesitancy, Denies urinary incontinence and Denies urinary urgency Musc Denies abnormal gait, Denies atrophy, Denies deformity and Denies limited range of motion Skin/Breast Denies bleeding lesions, Denies changing lesions and Denies rash Neuro Denies abnormal gait and Denies lack of coordination Physical exam (Primary Care) Vital Signs: Last Vital Signs BP 150/70 H 01/08/24 15:31 BMI result Body Mass Index 32.1 Tobacco/Smoking Status: Tobacco use Status Tobacco use date assessed 01/08/24 01/08/24 15:36 Patient Tobacco Use Status Never used Tobacco 01/08/24 15:36 Tobacco use type 02/26/22 10:17 e-Cigarette/Vaping Use Never Used 01/08/24 15:36 PHQ-9: PHQ-9 Score PHQ-9: Total score 0 01/08/24 16:01 Depression Screening Interpretation: Negative Thrive Assessment: Date of Thrive Assessment Date Thrive assessed 01/08/24 01/08/24 15:36 Currently or been in a relationship where the following occur: no concerns reported Eyes General: appearance normal, both eyes and all related structures Eyelids: Yes eyelids normal Conjunctivae: conjunctivae normal Neck Neck: Yes normal visual inspection and Yes supple Resp Effort & Inspection: normal respiratory effort Auscultation: clear to auscultation bilaterally Cardio Jugular venous distension: no JVD Rate: regular rate Rhythm: regular rhythm Heart sounds: S1 normal heart sound present and S2 normal heart sound present Extrem General: Yes full ROM Assessment and Plan Assessment & Plan (1) Essential hypertension: Code(s): I10 - Essential (primary) hypertension Plan: Continue amlodipine. Blood pressure goal is equal or less than 130/80. (2) Postherpetic neuralgia: Comment: taking gabapentin Code(s): B02.29 - Other postherpetic nervous system involvement Plan: Continue gabapentin. (3) Left lumbar radiculopathy: Code(s): M54.16 - Radiculopathy, lumbar region Plan: Continue naproxen as needed. (4) Hypovitaminosis D: Code(s): E55.9 - Vitamin D deficiency, unspecified Plan: Continue vitamin-D supplements Orders: Orders Vitamin D 25-OH Total 7 Months E55.9 - Vitamin D deficiency, unspecified Lipid Panel 7 Months E78.5 - Hyperlipidemia, unspecified Comprehensive [place]. Panel Fast 7 Months R73.01 - Impaired fasting glucose Coding Level of Care Code Est Pt Level 4 (65952) Diagnoses Essential hypertension I10 Postherpetic neuralgia B02.29 Left lumbar radiculopathy M54.16 Hypovitaminosis D E55.9 Additional Codes ROSS-7 Assessment Billing - ROSS-7 Assessment Tool: ROSS-7 Assessment 75127 ([id number]) Time Spent (min) 24
[2024-01-08 15:31] VITALS: BP 150/70; BMI 32.1
[2024-01-08 19:54] VITALS: BP 150/70
== END 2024-01-08 16:08 | disposition home or self-care (01) ==
PROVIDERS: PCP Internal Medicine; Visit Provider Internal Medicine
DX: I10 Essential (primary) hypertension (principal); B02.29 Other postherpetic nervous system involvement; M54.16 Radiculopathy, lumbar region; E55.9 Vitamin D deficiency, unspecified
CPT/HCPCS: 99214

== ENCOUNTER 2024-05-17 14:07 | Outpatient (AMB) | payer OTHER, SELFPAY ==
--- NOTE | 2024-05-17 14:09 | MHC.PC.OV ---
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 Accompanied by: Self / Same As Patient Allergies lisinopril Adverse Reaction (Intermediate, Verified 05/17/24 14:20) Cough Medication List - Last Reconciled 05/17/24 by Carisa Jones MD amlodipine 5 mg PO DAILY 90 days blood pressure kit-extra large As directed blood pressure monitor As directed cholecalciferol (vitamin D3) (Vitamin D3) 50 mcg PO DAILY 90 days gabapentin 300 mg PO BEDTIME gabapentin 100 mg PO TID lidocaine 5% (Lidoderm) 1 patch topical DAILY losartan 100 mg PO DAILY 90 days Tobacco use date assessed: 01/08/24 Fall risk assessment: No Falls in past year Last assessed Fall Risk: 05/17/24 Dental Screening Dental Screen Date: 01/08/24 HPI HPI Comments History of Present Illness Details This is a 78-year-old male with hypertension, post herpetic neuralgia, impaired glucose tolerance and low vitamin-D that comes today for follow-up on his conditions. Blood pressure stable. Neuralgia well controlled with gabapentin. Has elevated fasting blood glucose but denies any polyuria, polydipsia or unintentional weight loss. On vitamin-D supplements for his low vitamin-D any chest pain or shortness on breath. Compliant with medication. [facility] Medical History (Updated 05/17/24 @ 14:30 by Carisa Jones MD) Class 1 obesity with body mass index (BMI) of 32.0 to 32.9 in adult Impaired glucose tolerance Class 1 obesity with body mass index (BMI) of 33.0 to 33.9 in adult Screening for prostate cancer Screening for colon cancer Left sided sciatica Tachycardia Palpitation Former smoker Periumbilical hernia Obesity Postherpetic neuralgia Essential hypertension Surgical History History of colonoscopy with polypectomy (1999) Family History Father Cancer Mother No problems noted. Social History Housing: Apartment Alcohol intake: former Patient Tobacco Use Status: Never used Tobacco e-Cigarette/Vaping Use: Never Used Second Hand Smoke Exposure: No service: No Current occupational status: disabled Cognitive needs: No Hearing needs: No Vision needs: Yes Questionnaire Thrive Questionnaire Date Thrive assessed: 01/08/24 ROSS-7 AMB Questionnaire ROSS-7 Date ROSS - 7 assessed: 01/08/24 Source: Developed by Drs. Dirk Grewal, Lilli Kumar, Milton Riojas and colleagues, with an educational hannah from [employer]. Review of Systems Const All systems reviewed & are unremarkable except as noted in HPI and below Card Denies chest pain at rest, Denies chest pain with activity, Denies edema, Denies irregular heart rhythm, Denies claudication, Denies dyspnea, Denies dyspnea on exertion, Denies orthopnea, Denies paroxysmal nocturnal dyspnea and Denies slow heart rate Resp Denies cough, Denies dyspnea and Denies dyspnea on exertion Physical exam (Primary Care) Vital Signs: Last Vital Signs BP 132/70 05/17/24 14:10 BMI result Body Mass Index 31.8 Tobacco/Smoking Status: Tobacco use Status Tobacco use date assessed 01/08/24 05/17/24 14:15 Patient Tobacco Use Status Never used Tobacco 05/17/24 14:15 Tobacco use type 02/26/22 10:17 e-Cigarette/Vaping Use Never Used 05/17/24 14:15 Thrive Assessment: Date of Thrive Assessment Date Thrive assessed 01/08/24 05/17/24 14:15 Resp Effort & Inspection: normal respiratory effort Auscultation: clear to auscultation bilaterally Cardio Jugular venous distension: no JVD Rate: regular rate Rhythm: regular rhythm Heart sounds: S1 normal heart sound present and S2 normal heart sound present Extrem General: Yes full ROM Psych Appearance: grossly normal Assessment and Plan Assessment & Plan (1) Essential hypertension: Code(s): I10 - Essential (primary) hypertension Plan: Continue amlodipine and losartan. Blood pressure goal is equal or less than 130/80. (2) Postherpetic neuralgia: Comment: taking gabapentin Code(s): B02.29 - Other postherpetic nervous system involvement Plan: Continue gabapentin. (3) Hypovitaminosis D: Code(s): E55.9 - Vitamin D deficiency, unspecified Plan: Continue vitamin-D supplements. (4) Impaired glucose tolerance: Code(s): R73.02 - Impaired glucose tolerance (oral) Plan: Repeat fasting blood glucose. Orders: Orders Lipid Panel Today R73.02 - Impaired glucose tolerance (oral) Vitamin D 25-OH Total Today E55.9 - Vitamin D deficiency, unspecified Comprehensive [place]. Panel Fast Today R73.02 - Impaired glucose tolerance (oral) Coding Level of Care Code Est Pt Level 4 (33630) Complex EM visit Add On G2211 Diagnoses Essential hypertension I10 Postherpetic neuralgia B02.29 Hypovitaminosis D E55.9 Impaired glucose tolerance R73.02 Time Spent (min) 22
[2024-05-17 14:10] VITALS: BP 132/70; BMI 31.8
== END 2024-05-17 14:25 | disposition home or self-care (01) ==
PROVIDERS: PCP Internal Medicine; Visit Provider Internal Medicine
DX: I10 Essential (primary) hypertension (principal); B02.29 Other postherpetic nervous system involvement; E55.9 Vitamin D deficiency, unspecified; R73.02 Impaired glucose tolerance (oral)
CPT/HCPCS: 99214; G2211

== ENCOUNTER 2024-08-09 08:47 | Outpatient (REF) | payer OTHER, SELFPAY ==
[2024-08-09 10:26] LABS: Alanine Aminotransferase 25 U/L (0-40); Albumin Level 4.1 g/dL (3.5-5.0); Alkaline Phosphatase 75 U/L (39-117); Anion Gap 8 (12-20); Aspartate Amino Transferase 19 U/L (5-37); Bilirubin Total 0.5 mg/dL (0.0-1.0); Blood Urea Nitrogen 15 mg/dL (9-16); Calcium 9.4 mg/dL (8.4-10.2); Carbon Dioxide 29 mmol/L (22-29); Chloride 108 mmol/L (96-108); Cholesterol 156 mg/dL (<200); Estimated Glomerular Filt Rate > 60; Glucose Fasting 113 mg/dL (60-99); HDL Cholesterol 43 mg/dL (>40); LDL Cholesterol Calculated 92 mg/dL (<100); Potassium 4.2 mmol/L (3.3-5.1); Sodium 141 mmol/L (135-145); Total Protein 6.8 g/dL (6.5-8.0); Triglycerides 109 mg/dL (<150)
[2024-08-09 10:46] LABS: Vitamin D 25-OH Total 24.6 ng/mL (>30)
== END 2024-08-09 08:48 | disposition home or self-care (01) ==
LOC: HO.LAB 08:47
PROVIDERS: PCP Internal Medicine; Visit Provider Internal Medicine
DX: R73.02 Impaired glucose tolerance (oral) (principal); R73.01 Impaired fasting glucose; E55.9 Vitamin D deficiency, unspecified
CPT/HCPCS: 36415; 80053; 80061; 82306

== ENCOUNTER 2024-08-10 08:53 | Outpatient (AMB) | payer OTHER, SELFPAY ==
--- NOTE | 2024-08-10 09:02 | AM.OFFVISMDC ---
Intake Vital Signs 08/10/24 09:08 Height 5 ft 6 in Weight 203 lb BMI 32.8 BP 138/72 Blood Pressure Location Lt brachial Position Sitting Intake Visit Reasons: SAWV Intake Note: Patient here for a subsequent annual wellness visit Operator Automated Process Required: No Accompanied by: Self / Same As Patient Allergies lisinopril Adverse Reaction (Intermediate, Verified 08/10/24 09:15) Cough Medication List - Last Reconciled 08/10/24 by Carisa Jones MD amlodipine 5 mg PO DAILY 90 days blood pressure kit-extra large As directed blood pressure monitor As directed cholecalciferol (vitamin D3) (Vitamin D3) 50 mcg PO DAILY 90 days gabapentin 300 mg PO BEDTIME gabapentin 100 mg PO TID lidocaine 5% (Lidoderm) 1 patch topical DAILY losartan 100 mg PO DAILY 90 days HPI HPI Comments History of Present Illness Details This is a 78-year-old male that comes for his subsequent annual wellness visit. Cologuard done 2021 was negative and next Cologuard should be 2024. Declines pneumococcal vaccine today. Ppp handed to patient. MOLST completed today. [place] of care reviewed and updated. [facility] Medical History (Updated 08/10/24 @ 09:46 by Carisa Jones MD) Class 1 obesity with body mass index (BMI) of 32.0 to 32.9 in adult Impaired glucose tolerance Class 1 obesity with body mass index (BMI) of 33.0 to 33.9 in adult Screening for prostate cancer Screening for colon cancer Left sided sciatica Tachycardia Palpitation Former smoker Periumbilical hernia Obesity Postherpetic neuralgia Essential hypertension Surgical History History of colonoscopy with polypectomy (1999) Family History (Updated 08/10/24 @ 09:19 by Carisa Jones MD) Father Cancer, Onset Age: 50 Alzheimer's dementia Mother No problems noted. Social History Housing: Apartment Alcohol intake: former Patient Tobacco Use Status: Never used Tobacco e-Cigarette/Vaping Use: Never Used Second Hand Smoke Exposure: No service: No Current occupational status: disabled Cognitive needs: No Hearing needs: No Vision needs: Yes Questionnaire Medicare Wellness Checkup [age] What gender do you identify with?: male During the past 4 weeks, how much have you been bothered by emotional problems such as feeling anxious, depressed, irritable, sad or downhearted, and blue?: not at all During the past 4 weeks, has your physical & emotional health limited your social activities with family, friends, neighbors, or groups?: not at all During the past 4 weeks, how much bodily pain have you generally had?: very mild pain During the past 4 weeks, was someone available to help you if you needed & wanted help?: no, not at all During the past 4 weeks, what was the hardest physical activity you could do for at least 2 minutes?: moderate Can you get to places out of walking distance without help? (For eg., can you travel alone on buses, taxis or drive your car?): Yes Can you go shopping for groceries or clothes without someone's help?: Yes Can you prepare your own meals?: Yes Can you do your housework without help?: Yes Because of any health problems, do you need the help of another person with your personal care needs such as eating, bathing, dressing or getting around the house?: No Can you handle your own money without help?: Yes During the past 4 weeks, how would you rate your health in general?: very good During the past 4 weeks how have things been going for you?: very well; could hardly better Are you having difficulties driving your car?: no Do you always fasten your seat belt when you are in a car?: yes, usually During past 4 weeks, have you been bothered by the following: never: Falling or dizzy when standing up, Sexual problems?, Trouble eating well?, Teeth or denture problems?, Problems using the telephone? and Tiredness or fatigue? Have you fallen 2 or more times in the past year?: No Are you afraid of falling?: No Are you a smoker?: no During the past 4 weeks, how many drinks of wine, beer, or other alcoholic beverages did you have?: no alcohol at all Do you exercise for about 20 minutes 3 or more times a week?: no, I usually do not exercise this much Have you been given information to help with the following?: no: Hazards in your house that might hurt you? and no: Keeping track of your medications? How often do you have trouble taking medicines the way you have been told to take them?: I always take medicine as prescribed What is your race?: or origin or descent Mini Mental State Exam (MMSE) Orientation What is the (year) (season) (date) (day) (month)?: year, season, date, day and month Where are we (state) (county) (town or city) (hospital) (floor)?: state, county, town or city, hospital/clinic and floor Registration Name of 3 unrelated objects clearly and slowly, then ask patient to repeat all 3 of them. (1st repeat determines score. Make sure they can repeat all three): object 1, object 2 and object 3 Attention & Calculation (CHOOSE ONE) Spell WORLD backwards (DLROW): 5 letters Recall Ask patient to repeat the 3 items from question #3.: object 1, object 2 and object 3 Language Show patient a wristwatch & ask what it is. Repeat for pencil.: watch and pencil Ask the patient to repeat the phrase 'No ifs, ands, or buts' after you.: correct Ask the patient to 'take a piece of paper with their right hand' 'fold paper in half' 'place paper on floor': take paper in right hand, fold paper in half and place paper on floor Print the sentence 'CLOSE YOUR EYES' on a piece. If patient actually closes eyes then score.: followed written direction Give patient a blank piece of paper & ask to write a sentence. Score if it contains a noun & verb.: sentence contains subject and verb Ask patient to copy figure of intersecting pentagons exactly. Score if all 10 angles & 2 intersects are included.: all 10 angles present & 2 are intersected Score Score: 30 Activity of Daily Living Bathing - sponge bath, tub bath or shower: receives no assistance (gets in/out by self, if usual bathing means Dressing - getting clothes from closets & drawers, including inner/outer garments & fasteners.: gets clothes & gets completely dressed without help Transfer: moves in & out of bed and chair without help (may use support object) Continence: controls urination/bowel movements completely by self Feeding: feeds self without help Total Score: 0 Information obtained from: patient Using telephone: independent Traveling: independent Shopping: independent Preparing meals: independent Housework: independent Taking medicine: independent Managing money: independent PHQ-9 Over the last 2 weeks, how often have you been bothered by any of the following problems? 1. Little interest or pleasure in doing things: not at all 2. Feeling down, depressed, or hopeless: not at all 3. Trouble falling or staying asleep, or sleeping too much: not at all 4. Feeling tired or having little energy: not at all 5. Poor appetite or overeating: not at all 6. Feeling bad about yourself - or that you are a failure or have let yourself or your family down: not at all 7. Trouble concentrating on things, such as reading the newspaper or watching television: not at all 8. Moving or speaking so slowly that other people could have noticed. Or the opposite - being so fidgety or restless that you have been moving around a lot more than usual: not at all 9. Thoughts that you would be better off or of hurting yourself in some way: not at all Total score: 0 Depression Screening Interpretation: Negative Depression Screening Done: Yes 91136 - PHQ-9 Billing: Yes Source: Developed by Drs. Dirk Grewal, Lilli Kumar, Milton Riojas and colleagues, with an educational hannah from [employer]. Fall Risk Assessment Fall Risk Assessment Fall risk assessment: No Falls in past year Thrive Questionnaire Date Thrive assessed: 08/10/24 I am a: Patient What is your living situation today?: I have a steady place to live Within the past 12 months, did the food you bought not last and you didn't have the money to get more?: Never true Within the past 12 months, did you worry whether your food would run out before you got money to buy more?: Never true Do you have trouble paying for medicines?: No Do you have trouble getting transportation to medical appointments?: No Do you have trouble paying your heating and electricity bill?: No Do you have trouble taking care of your child, family member or friend?: No Do you have trouble with day-to-day activities such as bathing, preparing meals, shopping, managing finances, etc.?: No Are you currently unemployed and looking for a job?: No Are you interested in more education?: No Please select the resources that you would like help with: None Currently or been in a relationship where the following occur: No concerns reported THRIVE Score: 0 AUDIT C Alcohol Use Questionnaire (AUDIT-C) 1. How often do you have a drink containing alcohol?: Never Total Score: 0 Score Reviewed/Action Taken: No ROSS-7 AMB Questionnaire ROSS-7 Date ROSS - 7 assessed: 08/10/24 Feeling nervous, anxious, or on edge: 0 = Not at all Not being able to stop or control worryin = Not at all Worrying too much about different things: 0 = Not at all Trouble relaxin = Not at all Being so restless that it is hard to sit still: 0 = Not at all Becoming easily annoyed or irritable: 0 = Not at all Feeling afraid as if something awful might happen: 0 = Not at all Total ROSS-7 score (0-4 normal; 5-9 mild; 10-14 moderate; 15-21 severe): 0 Source: Developed by Drs. Dirk Grewal, Lilli Kumar, Milton Riojas and colleagues, with an educational hannah from [employer]. ROSS-7 Assessment Billing ROSS-7 Assessment Tool: ROSS-7 Assessment 40067 Review of Systems Const All systems reviewed & are unremarkable except as noted in HPI and below Card Denies chest pain at rest, Denies chest pain with activity, Denies edema, Denies irregular heart rhythm, Denies claudication, Denies dyspnea, Denies dyspnea on exertion, Denies orthopnea, Denies paroxysmal nocturnal dyspnea and Denies slow heart rate Resp Denies cough, Denies dyspnea and Denies dyspnea on exertion Neuro Denies confusion Psych Denies confusion Physical Exam Vital Signs: Last Vital Signs BP 138/72 08/10/24 09:08 BMI result Body Mass Index 32.8 Const General: No confusion Orientation/consciousness: patient oriented x3 and No confusion Resp Effort & Inspection: normal respiratory effort Auscultation: clear to auscultation bilaterally Cardio Jugular venous distension: no JVD Rate: regular rate Rhythm: regular rhythm Heart sounds: S1 normal heart sound present and S2 normal heart sound present Neuro General: patient oriented x3, no focal motor deficits and No confusion Gait exam (Neuro): Normal gait present Romberg Test: Negative Extrem General: Yes full ROM Psych Appearance: grossly normal Assessment & Plan Assessment & Plan (1) Encounter for Medicare annual wellness exam: Code(s): Z00.00 - Encounter for general adult medical examination without abnormal findings Plan: Repeat in a year. Orders: Orders Vitamin D 25-OH (D2 and D3) 6 Months E55.9 - Vitamin D deficiency, unspecified Comprehensive [place]. Panel Fast 6 Months R73.01 - Impaired fasting glucose Lipid Panel 6 Months E78.5 - Hyperlipidemia, unspecified Quality Reporting (2019) Adult ([facility] 138//) Smoking risk assessment performed?: Yes Patient Tobacco Use Status: Never used Tobacco Fall Risk Screening ([facility] 139) Fall risk assessment: No Falls in past year Depression/Bipolar (159/160/161/177) PHQ-9: Total score: 0 Coding Level of Care Code Medicare Subsequent (G0439) Diagnoses Encounter for Medicare annual wellness exam Z00.00 CPT Codes Advance Care Planning - Time spent: 1-15 minutes, on File ([id number]) Additional Codes ROSS-7 Assessment Billing - ROSS-7 Assessment Tool: ROSS-7 Assessment 05121 ([id number]) Time Spent (min) 35 Advance Care Planning Advance Care Planning discussion: Completed/Scanned Date of discussion: 08/10/24 Who was present: Patient and me Forms completed: MOLST Time spent: 1-15 minutes, on File Actual minutes spent: 5
[2024-08-10 09:08] VITALS: BP 138/72; BMI 32.8
== END 2024-08-10 09:36 | disposition home or self-care (01) ==
PROVIDERS: PCP Internal Medicine; Visit Provider Internal Medicine
DX: Z00.00 Encounter for general adult medical examination without abnormal findings (principal)

== ENCOUNTER → 2024-08-10 08:53 | Outpatient (BNVA) | payer OTHER, SELFPAY | PROVIDERS: PCP Internal Medicine; Visit Provider Internal Medicine | DX: Z00.00 Encounter for general adult medical examination without abnormal findings (principal); E78.5 Hyperlipidemia, unspecified | CPT/HCPCS: 96127 ==

== ENCOUNTER 2025-02-04 08:55 | Outpatient (REF) | payer OTHER, SELFPAY ==
[2025-02-04 10:42] LABS: Alanine Aminotransferase 34 U/L (0-40); Anion Gap 10 (12-20); Aspartate Amino Transferase 26 U/L (5-37); Bilirubin Total 0.5 mg/dL (0.0-1.0); Blood Urea Nitrogen 17 mg/dL (9-16); Calcium 8.9 mg/dL (8.4-10.2); Carbon Dioxide 28 mmol/L (22-29); Chloride 106 mmol/L (96-108); Cholesterol 153 mg/dL (<200); Estimated Glomerular Filt Rate > 60; Glucose Fasting 109 mg/dL (60-99); HDL Cholesterol 47 mg/dL (>40); LDL Cholesterol Calculated 78 mg/dL (<100); Potassium 4.2 mmol/L (3.3-5.1); Sodium 140 mmol/L (135-145); Total Protein 7.2 g/dL (6.5-8.0); Triglycerides 141 mg/dL (<150)
[2025-02-04 11:02] LABS: Vitamin D 25-OH Total 16.3 ng/mL (>30)
[2025-02-04 11:19] LABS: Alkaline Phosphatase 69 U/L (39-117)
[2025-02-11 16:54] LABS: Vitamin D 25-OH, D2 <4 ng/mL; Vitamin D 25-OH, D3 21 ng/mL; Vitamin D 25-OH, Total 21 ng/mL (30-100)
== END 2025-02-04 08:56 | disposition home or self-care (01) ==
LOC: HO.LAB 08:55
PROVIDERS: PCP Internal Medicine; Visit Provider Internal Medicine
DX: R73.02 Impaired glucose tolerance (oral) (principal); E55.9 Vitamin D deficiency, unspecified; E78.5 Hyperlipidemia, unspecified
CPT/HCPCS: 36415; 80053; 80061; 82306

== ENCOUNTER 2025-02-07 10:53 | Outpatient (AMB) | payer OTHER, SELFPAY ==
--- NOTE | 2025-02-07 11:05 | A.OFFPC_ITS ---
Vital Signs 02/07/25 11:07 Height 5 ft 6 in Weight 212 lb BMI 34.2 BP 138/70 Blood Pressure Location Lt brachial Position Sitting Intake Visit Reasons: 6 Month F/U Intake Note: Patient here for a 6 month follow up Hazmat Truck Driver Required: Yes Hazmat Truck Driver Language: Supervisor Diagnostic Name: Carisa Jones MD Information Interpreted: non-clinical & clinical Accompanied by: Self / Same As Patient Allergies lisinopril Adverse Reaction (Intermediate, Verified 02/07/25 11:29) Cough Medication List - Last Reconciled 02/07/25 by Carisa Jones MD amlodipine 5 mg PO DAILY 90 days blood pressure kit-extra large As directed blood pressure monitor As directed cholecalciferol (vitamin D3) (Vitamin D3) 50 mcg PO DAILY 90 days gabapentin 300 mg PO BEDTIME gabapentin 100 mg PO TID lidocaine 5% (Lidoderm) 1 patch topical DAILY losartan 100 mg PO DAILY 90 days Tobacco use date assessed: 02/07/25 Fall risk assessment: No Falls in past year Last assessed Fall Risk: 02/07/25 Dental Screening Dental Screen Date: 02/07/25 Did you have a dental visit in the last 12 months?: Yes Did you have a dental problem in the last 6 months where you did not have access to dental care?: No Was dental information given to patient?: Patient has dentist HPI HPI Comments History of Present Illness Details The patient is a 79-year-old male presenting with a request for medication refill and review of his chronic medical conditions. Postherpetic neuralgia is a lasting concern, and he has been taking gabapentin regularly, which has helped manage symptoms. Unfortunately, he ran out of this medication over two weeks ago, experiencing difficulty refilling due to pharmacy availability issues. The patient?s hypertension appears to be well-managed on Amlodipine and Losartan, with no recent exacerbations noted. He experienced a cough with Lisinopril in the past, thus it was discontinued. His prediabetes status shows improvement, with a current fasting glucose level of 109 mg/dL. Previous chol esterol checks display effective management at 153 mg/dL. A history of vitamin D insufficiency is indicated, although updated levels remain pending. He denies chest pain, shortness of breath, or febrile states. [facility] Medical History (Updated 08/10/24 @ 09:46 by Carisa Jones MD) Class 1 obesity with body mass index (BMI) of 32.0 to 32.9 in adult Impaired glucose tolerance Class 1 obesity with body mass index (BMI) of 33.0 to 33.9 in adult Screening for prostate cancer Screening for colon cancer Left sided sciatica Tachycardia Palpitation Former smoker Periumbilical hernia Obesity Postherpetic neuralgia Essential hypertension Surgical History History of colonoscopy with polypectomy (1999) Family History Father Cancer, Onset Age: 50 Alzheimer's dementia Mother No problems noted. Social History Housing: Apartment Alcohol intake: former Patient Tobacco Use Status: Never used Tobacco e-Cigarette/Vaping Use: Never Used Second Hand Smoke Exposure: No service: No Current occupational status: disabled Cognitive needs: No Hearing needs: No Vision needs: Yes Questionnaire PHQ-9 Over the last 2 weeks, how often have you been bothered by any of the following problems? 1. Little interest or pleasure in doing things: not at all 2. Feeling down, depressed, or hopeless: not at all 3. Trouble falling or staying asleep, or sleeping too much: not at all 4. Feeling tired or having little energy: not at all 5. Poor appetite or overeating: not at all 6. Feeling bad about yourself - or that you are a failure or have let yourself or your family down: not at all 7. Trouble concentrating on things, such as reading the newspaper or watching television: not at all 8. Moving or speaking so slowly that other people could have noticed. Or the opposite - being so fidgety or restless that you have been moving around a lot more than usual: not at all 9. Thoughts that you would be better off or of hurting yourself in some way: not at all Total score: 0 Depression Screening Interpretation: Negative Depression Screening Done: Yes 15741 - PHQ-9 Billing: Yes Source: Developed by Drs. Dirk Grewal, Lilli Kumar, Milton Riojas and colleagues, with an educational hannah from [employer]. Thrive Questionnaire Date Thrive assessed: 02/07/25 I am a: Patient What is your living situation today?: I have a steady place to live Within the past 12 months, did the food you bought not last and you didn't have the money to get more?: Never true Within the past 12 months, did you worry whether your food would run out before you got money to buy more?: Never true Do you have trouble paying for medicines?: No Do you have trouble getting transportation to medical appointments?: No Do you have trouble paying your heating and electricity bill?: No Do you have trouble taking care of your child, family member or friend?: No Do you have trouble with day-to-day activities such as bathing, preparing meals, shopping, managing finances, etc.?: No Are you currently unemployed and looking for a job?: No Are you interested in more education?: No Please select the resources that you would like help with: None Currently or been in a relationship where the following occur: No concerns reported THRIVE Score: 0 AUDIT C Alcohol Use Questionnaire (AUDIT-C) 1. How often do you have a drink containing alcohol?: Never Total Score: 0 Score Reviewed/Action Taken: No ROSS-7 AMB Questionnaire ROSS-7 Date ROSS - 7 assessed: 02/07/25 Feeling nervous, anxious, or on edge: 0 = Not at all Not being able to stop or control worryin = Not at all Worrying too much about different things: 0 = Not at all Trouble relaxin = Not at all Being so restless that it is hard to sit still: 0 = Not at all Becoming easily annoyed or irritable: 0 = Not at all Feeling afraid as if something awful might happen: 0 = Not at all Total ROSS-7 score (0-4 normal; 5-9 mild; 10-14 moderate; 15-21 severe): 0 Source: Developed by Drs. Dirk Grewal, Lilli Kumar, Milton Riojas and colleagues, with an educational hannah from [employer]. ROSS-7 Assessment Billing ROSS-7 Assessment Tool: ROSS-7 Assessment 83627 Review of Systems Const All systems reviewed & are unremarkable except as noted in HPI and below Card Denies chest pain at rest, Denies chest pain with activity, Denies edema, Denies irregular heart rhythm, Denies claudication, Denies dyspnea, Denies dyspnea on exertion, Denies orthopnea, Denies paroxysmal nocturnal dyspnea and Denies slow heart rate Resp Denies cough, Denies dyspnea and Denies dyspnea on exertion GI Denies abdominal pain, Denies change in bowel habits, Denies excessive flatus, Denies nausea and Denies vomiting Physical exam (Primary Care) Vital Signs: Last Vital Signs BP 138/70 02/07/25 11:07 BMI result Body Mass Index 34.2 BMI Assessment/Plan discussion: High BMI High, discussed plan: lifestyle, weight reduction, dietary and physical activity Tobacco/Smoking Status: Tobacco use Status Tobacco use date assessed 02/07/25 02/07/25 11:18 Patient Tobacco Use Status Never used Tobacco 02/07/25 11:18 Tobacco use type 02/26/22 10:17 e-Cigarette/Vaping Use Never Used 02/07/25 11:18 PHQ-9: PHQ-9 Score PHQ-9: Total score 0 02/07/25 11:18 Depression Screening Interpretation: Negative Thrive Assessment: Date of Thrive Assessment Date Thrive assessed 02/07/25 02/07/25 11:18 Currently or been in a relationship where the following occur: No concerns reported Resp Effort & Inspection: normal respiratory effort Auscultation: clear to auscultation bilaterally Cardio Jugular venous distension: no JVD Rate: regular rate Rhythm: regular rhythm Heart sounds: S1 normal heart sound present and S2 normal heart sound present Extrem General: Yes full ROM Coding Level of Care Code Est Pt Level 4 (10001) Complex EM visit Add On G2211 Diagnoses Essential hypertension I10 Postherpetic neuralgia B02.29 Impaired glucose tolerance R73.02 Hypovitaminosis D E55.9 Additional Codes PHQ-9 - 91658 - PHQ-9 Billing: Yes ([id number]) ROSS-7 Assessment Billing - ROSS-7 Assessment Tool: ROSS-7 Assessment 78001 ([id number]) Time Spent (min) 23 Assessment & Plan Assessment & Plan (1) Essential hypertension: Code(s): I10 - Essential (primary) hypertension Category: Medical (2) Postherpetic neuralgia: Comment: taking gabapentin Code(s): B02.29 - Other postherpetic nervous system involvement Category: Medical (3) Impaired glucose tolerance: Code(s): R73.02 - Impaired glucose tolerance (oral) Category: Medical (4) Hypovitaminosis D: Code(s): E55.9 - Vitamin D deficiency, unspecified Category: Medical Plan For postherpetic neuralgia, gabapentin will be prescribed as per the previous regimen to resume adequate symptom control. Hypertension appears well-managed on the current regimen of Losartan 100 mg and Amlodipine. Avoiding Lisinopril due to a past allergic reaction is necessary. Continuing the current approach for prediabetes with monitoring aimed at reducing fasting glucose levels to a sustainable range. Given that cholesterol management is effective, we await further results for vitamin D to adjust treatment accordingly. Guidance includes routine monitoring of glucose and blood pressure, with reinforcement on adherence to prescribed medication and lifestyle recommendations for optimal chronic disease management. Patient was informed and verbally consented to the use of an ambient scribe for clinic note documentation during this visit. I discussed with the patient the importance of resuming gabapentin for his neuralgia and the necessity of addressing the pharmacy issue. We reviewed his current control over hypertension, attributing the stable blood pressure to the consistency with Losartan and Amlodipine, emphasizing the need to avoid Lisin opril due to previous adverse reactions. I highlighted the improvements seen in prediabetes management and the need for continued vigilance in lifestyle modifications to maintain glucose levels. The conversation included follow-up on cholesterol control and pending vitamin D results, reassuring the patient of the stability of these conditions under current therapy. Medications: Changed From gabapentin 300 mg PO BEDTIME To gabapentin 300 mg PO BEDTIME 90 days 90 caps 1RF Refilled gabapentin 100 mg PO TID 270 caps 1RF Patient Instructions: - Resume gabapentin as prescribed: 100 mg three times daily and 300 mg at night. - Continue taking medications for blood pressure as directed. - Maintain regular blood sugar monitoring, focusing on diet and lifestyle measures. - Return for follow-up labs for vitamin D and cholesterol. - Report any new symptoms such as shortness of breath, chest pain, or persistent fatigue immediately.
[2025-02-07 11:07] VITALS: BP 138/70; BMI 34.2
== END 2025-02-07 11:38 | disposition home or self-care (01) ==
LOC: HO.HMCH 10:54
PROVIDERS: PCP Internal Medicine; Visit Provider Internal Medicine
DX: I10 Essential (primary) hypertension (principal); B02.29 Other postherpetic nervous system involvement; R73.02 Impaired glucose tolerance (oral); E55.9 Vitamin D deficiency, unspecified

== ENCOUNTER → 2025-02-07 10:53 | Outpatient (BNVA) | payer OTHER, SELFPAY | PROVIDERS: PCP Internal Medicine; Visit Provider Internal Medicine | DX: I10 Essential (primary) hypertension (principal); B02.29 Other postherpetic nervous system involvement; R73.02 Impaired glucose tolerance (oral); E55.9 Vitamin D deficiency, unspecified | CPT/HCPCS: 96127; 99212 ==

== ENCOUNTER 2025-08-15 10:14 | Outpatient (AMB) | payer OTHER, SELFPAY ==
--- NOTE | 2025-08-15 10:17 | MHC.PC.OV ---
Vital Signs 08/15/25 10:18 Height 5 ft 6 in Weight 198 lb 4 oz BMI 32.0 BP 120/60 Blood Pressure Location Lt brachial Position Sitting Pulse 71 Pulse Source Pulse Oximeter Temp 97.1 F Temp Source Temporal Artery Scan Pulse Oximetry (%) 97 Oxygen Delivery Method Room Air Intake Visit Reasons: annual Intake Note: Patient is here today for a physical. Wireless Sales Expert Required: Yes Wireless Sales Expert Language: Mohawk Information Interpreted: non-clinical & clinical Inspector Production [employer]: Not Required per policy Accompanied by: Self / Same As Patient Allergies lisinopril Adverse Reaction (Intermediate, Verified 08/15/25 10:32) Cough Medication List - Last Reconciled 08/15/25 by Carisa Jones MD amlodipine 5 mg PO DAILY 90 days blood pressure kit-extra large As directed blood pressure monitor As directed cholecalciferol (vitamin D3) (Vitamin D3) 50 mcg PO DAILY 90 days gabapentin 300 mg PO BEDTIME 90 days gabapentin 100 mg PO TID lidocaine 5% (Lidoderm) 1 patch topical DAILY losartan 100 mg PO DAILY 90 days Tobacco use date assessed: 08/15/25 Fall risk assessment: No Falls in past year Last assessed Fall Risk: 08/15/25 Dental Screening Dental Screen Date: 02/07/25 HPI HPI Comments History of Present Illness Details The patient is a 79-year-old male presenting for an annual physical examination and preventative care. The patient has a history of hypertension, currently managed with amlodipine 5 mg and losartan 100 mg. He is also taking vitamin D and gabapentin 100 mg three times daily and 300 mg at night for unspecified reasons. In terms of preventative care, the patient underwent a Cologuard test for colon cancer screening in 2021, which was negative. He is due for a repeat test this year. The patient's father had a history of dementia, and there is a mention of prostate cancer in the family history. The patient does not consume alcohol, and his recent laboratory results were satisfactory, negating the need for repetition at this time. - Colon cancer screening with Cologuard test scheduled for this year - Blood pressure management with amlodipine and losartan - Patient declined pcv20 today. [facility] Medical History Class 1 obesity with body mass index (BMI) of 32.0 to 32.9 in adult Impaired glucose tolerance Class 1 obesity with body mass index (BMI) of 33.0 to 33.9 in adult Screening for prostate cancer Screening for colon cancer Left sided sciatica Tachycardia Palpitation Former smoker Periumbilical hernia Obesity Postherpetic neuralgia Essential hypertension Surgical History History of colonoscopy with polypectomy (1999) Family History Father Cancer, Onset Age: 50 Alzheimer's dementia Mother No problems noted. Social History Housing: Apartment Alcohol intake: former Patient Tobacco Use Status: Never used Tobacco e-Cigarette/Vaping Use: Never Used Second Hand Smoke Exposure: No service: No Current occupational status: disabled Cognitive needs: No Hearing needs: No Vision needs: Yes Questionnaire PHQ-9 Over the last 2 weeks, how often have you been bothered by any of the following problems? 1. Little interest or pleasure in doing things: not at all 2. Feeling down, depressed, or hopeless: not at all 3. Trouble falling or staying asleep, or sleeping too much: not at all 4. Feeling tired or having little energy: not at all 5. Poor appetite or overeating: not at all 6. Feeling bad about yourself - or that you are a failure or have let yourself or your family down: not at all 7. Trouble concentrating on things, such as reading the newspaper or watching television: not at all 8. Moving or speaking so slowly that other people could have noticed. Or the opposite - being so fidgety or restless that you have been moving around a lot more than usual: not at all 9. Thoughts that you would be better off or of hurting yourself in some way: not at all Total score: 0 Depression Screening Interpretation: Negative Depression Screening Done: Yes 57293 - PHQ-9 Billing: Yes Source: Developed by Drs. Dirk Grewal, Lilli Kumar, Milton Riojas and colleagues, with an educational hannah from [employer] Thrive Questionnaire Date Thrive assessed: 02/07/25 I am a: Patient What is your living situation today?: I have a steady place to live Within the past 12 months, did the food you bought not last and you didn't have the money to get more?: Never true Within the past 12 months, did you worry whether your food would run out before you got money to buy more?: Never true Do you have trouble paying for medicines?: No Do you have trouble getting transportation to medical appointments?: No Do you have trouble paying your heating and electricity bill?: No Do you have trouble taking care of your child, family member or friend?: No Do you have trouble with day-to-day activities such as bathing, preparing meals, shopping, managing finances, etc.?: No Are you currently unemployed and looking for a job?: No Are you interested in more education?: No Please select the resources that you would like help with: None Currently or been in a relationship where the following occur: No concerns reported THRIVE Score: 0 AUDIT C Alcohol Use Questionnaire (AUDIT-C) 1. How often do you have a drink containing alcohol?: Never Total Score: 0 Score Reviewed/Action Taken: No ROSS-7 AMB Questionnaire ROSS-7 Date ROSS - 7 assessed: 02/07/25 Feeling nervous, anxious, or on edge: 0 = Not at all Not being able to stop or control worryin = Not at all Worrying too much about different things: 0 = Not at all Trouble relaxin = Not at all Being so restless that it is hard to sit still: 0 = Not at all Becoming easily annoyed or irritable: 0 = Not at all Feeling afraid as if something awful might happen: 0 = Not at all Total ROSS-7 score (0-4 normal; 5-9 mild; 10-14 moderate; 15-21 severe): 0 Source: Developed by Drs. Dirk Grewal, Lilli Kumar, Milton Riojas and colleagues, with an educational hannah from [employer] ROSS-7 Assessment Billing ROSS-7 Assessment Tool: ROSS-7 Assessment 22385 Review of Systems Const All systems reviewed & are unremarkable except as noted in HPI and below Card Denies chest pain at rest, Denies chest pain with activity, Denies edema, Denies irregular heart rhythm, Denies claudication, Denies dyspnea, Denies dyspnea on exertion, Denies orthopnea, Denies paroxysmal nocturnal dyspnea and Denies slow heart rate Resp Denies cough, Denies dyspnea and Denies dyspnea on exertion GI Denies abdominal pain, Denies change in bowel habits, Denies excessive flatus, Denies nausea and Denies vomiting Physical exam (Primary Care) Vital Signs: Last Vital Signs Temp 97.1 F 08/15/25 10:18 Pulse 71 08/15/25 10:18 BP 120/60 08/15/25 10:18 Pulse Ox 97 08/15/25 10:18 Oxygen Delivery Method Room Air 08/15/25 10:18 BMI result Body Mass Index 32.0 BMI Assessment/Plan discussion: High BMI High, discussed plan: lifestyle, weight reduction, dietary and physical activity Tobacco/Smoking Status: Tobacco use Status Tobacco use date assessed 08/15/25 08/15/25 10:22 Patient Tobacco Use Status Never used Tobacco 08/15/25 10:22 Tobacco use type 02/26/22 10:17 e-Cigarette/Vaping Use Never Used 08/15/25 10:22 PHQ-9: PHQ-9 Score PHQ-9: Total score 0 08/15/25 10:35 Depression Screening Interpretation: Negative Thrive Assessment: Date of Thrive Assessment Date Thrive assessed 02/07/25 08/15/25 10:22 Currently or been in a relationship where the following occur: No concerns reported [facility] Head: Yes normal to inspection, Yes normocephalic and Yes atraumatic Ears: external ears normal Eyes General: appearance normal, both eyes and all related structures Eyelids: Yes eyelids normal Conjunctivae: conjunctivae normal Neck Neck: Yes normal visual inspection and Yes supple Resp Effort & Inspection: normal respiratory effort Auscultation: clear to auscultation bilaterally Cardio Jugular venous distension: no JVD Rate: regular rate Rhythm: regular rhythm Heart sounds: S1 normal heart sound present and S2 normal heart sound present GI Inspection: Yes normal to inspection Palpation (GI): Soft to palpation and nontender Auscultation: normal bowel sounds Skin General skin exam: no rashes or lesions noted Neuro General: no focal motor deficits Extrem General: Yes full ROM Psych Appearance: grossly normal Coding Level of Care Code Est Pt Prev Care >65y(81565) Diagnoses Adult general medical exam Z00.00 Additional Codes ROSS-7 Assessment Billing - ROSS-7 Assessment Tool: ROSS-7 Assessment 41248 ([id number]) PHQ-9 - 22002 - PHQ-9 Billing: Yes ([id number]) Time Spent (min) 30 Assessment & Plan Assessment & Plan (1) Adult general medical exam: Code(s): Z00.00 - Encounter for general adult medical examination without abnormal findings Category: Medical Plan Plan Patient was informed and verbally consented to the use of an ambient scribe for clinic note documentation during this visit. 1. Encounter for general adult medical examination without abnormal findings Z00.00 The patient is scheduled for a repeat Cologuard test this year as part of routine colon cancer screening. Orders: Referrals Cologuard Test Z12.11 - Encounter for screening for malignant neoplasm of colon, Z12.12 - Encounter for screening for malignant neoplasm of rectum
[2025-08-15 10:18] VITALS: BP 120/60; PULSE 71; TEMP 36.2; O2SAT 97; BMI 32.0
== END 2025-08-15 10:43 | disposition home or self-care (01) ==
LOC: HO.HMCH 10:14
PROVIDERS: PCP Internal Medicine; Visit Provider Internal Medicine
DX: Z00.00 Encounter for general adult medical examination without abnormal findings (principal)

== ENCOUNTER → 2025-08-15 10:14 | Outpatient (BNVA) | payer OTHER, SELFPAY | PROVIDERS: PCP Internal Medicine; Visit Provider Internal Medicine | DX: Z00.00 Encounter for general adult medical examination without abnormal findings (principal); I10 Essential (primary) hypertension; Z79.899 Other long term (current) drug therapy | CPT/HCPCS: 96127; 99397 ==